=== PATIENT | male | born 1955 | race African-American/Black ===

== ENCOUNTER 2016-11-07 23:57 | Inpatient (IN) | payer OTHER ==
[2016-11-08 00:43] LABS: #Eosinphils 0.3 thou/uL (0.0-0.7); #Monocytes 1.3 thou/uL (0.11-0.59); #Neutrophils 6.1 thou/uL (1.40-6.50); %Basophils 0.3 % (0.0-1.0); %Eosinophils 3.3 % (0.0-10.0); %Lymphocytes 20.2 % (21.0-51.0); %Monocytes 13.8 % (0.0-10.0); Hematocrit 37.2 % (42.0-52.0); Mean Platelet Volume 7.5 fL (7.4-10.4); Red Blood Cell (RBC) Count 3.84 mill/uL (4.70-6.10); White Blood Cell (WBC) Count 9.7 thou/uL (4.8-10.8)
[2016-11-08 01:04] LABS: Anion Gap 14 mmol/L (10-20); BUN (Urea Nitrogen) 13 mg/dL (8.4-25.7); Calc. Creatinine Clearance 0 mL/min (70-130); Calcium 9.6 mg/dL (7.8-10.44); Carbon Dioxide 21 mmol/L (23-31); Chloride 105 mmol/L (98-107); Estimated GFR-MDRD 86
[2016-11-08] MEDS ORDERED: Acetaminophen 325 MG TAB PO PRN ×2 (05:10→09:48)
[2016-11-08] MEDS ORDERED: HYDROcodone/Acetaminophen 5/325 mg Tablet PO PRN ×2 (05:10)
[2016-11-08] MEDS ORDERED: Ondansetron ODT 4 MG TAB SL PRN (05:10)
[2016-11-08] MEDS ORDERED: 1/2 NS w/KCL 20 mEq 1,000 ML IV SCH (05:10)
[2016-11-08] MEDS ORDERED: Ondansetron HCl/PF 4 MG/2 ML Vial IVP PRN ×2 (05:10→09:48)
--- NOTE | 2016-11-08 07:55 | RAD ---
THREE VIEWS OF THE LEFT FOOT: COMPARISON: None. HISTORY: Swelling of left foot with probable gout. FINDINGS: Three views of the left foot show no evidence of acute fracture or dislocation. There is swelling s urrounding the great toe metatarsophalangeal joint. There may be a small erosion along the proximal aspect of the proximal phalanx of the great toe. No calcified masses are seen in the soft tissues. IMPRESSION: Osseous erosions adjacent to the great toe metatarsophalangeal joint may represent erosion from gout . POS: [facility]
--- NOTE | 2016-11-08 08:09 | CON ---
DATE OF CONSULTATION: 11/08/2016 REQUESTING PHYSICIAN: Dr. Floyd Quinonez CONSULTING PHYSICIAN: Dr. Jaspreet Garcia REASON FOR CONSULTATION: Left ankle effusion. HISTORY OF PRESENT ILLNESS: Davy is a 61-year-old male who presented to the [facility] room yesterday evening at the request of his primary care doctor. Apparently Sunday evening of this week he had acute onset swelling of the left foot and ankle. It was uncomfortable. He is u nable bear weight. He saw his primary care physician who told him it was probably gout and started him on allopurinol. He was also given ER precautions for increase in temperature over 99 degrees. Therefore, when his temperature did go up he presented to [facility] and was admitted to the Medicine Team. Our service was consulted for evaluation of left ankle effusion which brought him in. Pain is uncomfortable. It is tolerable when he sits still, but he cannot bear weight on it and he was walking fine earlier this week. No history of trauma precedes t he onset. Sedimentation rate is 90 and C-reactive protein is 12.25. He has no white count to speak of, and he has been afebrile since he has been in the hospital. PAST MEDICAL HISTORY: Hypertension and diabetes type 2, managed with oral medications. New diagnos is of gout. He has had swollen joints before, his right knee has swelled on him some months back. His past medical history is also significant for coronary artery disease and apparently had an open CABG in September of this year. PAST SURGICAL HISTORY: Recent coronary artery bypass graft. MEDICATIONS: Carvedilol, Entresto, atorvastatin, Ecotrin, metformin, Plavix, allopurinol. PHYSICAL EXAMINATION: Visual inspection of the left lower extremity demonstrates him to indeed have an effusion over the left ankle. Pain is provocative with active and/or passive motion. He likes to keep it still. It is minimally warm, but not much erythema is noticed. He has good digital excu rsion. He is neurovascularly intact. There is no evidence of overt trauma. Diffuse circumferentia l swelling and a palpable effusion is noted. IMAGING STUDIES: Three views of the foot demonstrates normal bony landmarks, but these films again are directed at the foot, not ankle, difficult to evaluate for joint effusion on these views, but th ere is some soft tissue swelling appreciated. I do not have a mortise view to evaluate. IMPRESSION: Left ankle acute onset effusions, suspect gout, low suspicion for septic arthritis. PLAN: 1. Serum uric acid with 24-hour urine uric acid. 2. Allow him to have an ADA 1800 calorie diet today, n.p.o. after midnight for recheck tomorrow robyn german. 3. Recommend fluids judiciously. 4. Continue allopurinol and revaluate tomorrow morning. If his ankle still swollen and no improvem ent has been made, consider arthrocentesis at the bedside unless he deteriorates, then consider oper ative management to include arthrotomy at surgery. We will reevaluate tomorrow morning to decide.
--- NOTE | 2016-11-08 09:02 | ULT ---
PRELIMINARY REPORT/[facility]/EMERGENCY AFTER HOURS PROCEDURE: EXAM: US Duplex Left Lower Extremity Veins EXAM DATE/TIME: Exam ordered 11/08/2016 1:34 AM CLINICAL HISTORY: 61 years old, male; Pain and signs and symptoms; Edema, localized; Lower extremity, left; Leg, lower and foot; Prior surgery; Surgery date: 1-6 months; Surgery type: Cabg 09/12/16. TECHNIQUE: Real-time ultrasound scan of the veins of the left lower extremity with color Doppler flow, spectral waveform analysis and compression. COMPARISON: No relevant prior studies available. FINDINGS: Deep veins: Normal. No DVT in the visualized common femoral, femoral, proximal deep femoral or popli teal veins. The veins demonstrate normal color flow, are normally compressible, with normal phasic f low and/or augmentation response. Superficial veins: Normal. No thrombus in the visualized great saphenous vein. Soft tissues: No show any soft tissue edema is present. No popliteal cyst. IMPRESSION: No LEFT lower extremity DVT. Thank you for allowing us to participate in the care of your patient. Dictated and Authenticated by: Elías Vargas MD 11/08/2016 2:17 AM Central Time ([place] \T\ [place]) FINAL REPORT EMERGENT AFTER HOURS LEFT LOWER EXTREMITY VENOUS DUPLEX EXAM: History: Leg pain and edema. FINDINGS: Real-time color doppler evaluation of the left lower extremity was performed from groin to calf. Thi s includes evaluation of the common femoral, superficial femoral, popliteal, saphenous and trifurcat ion veins. This shows a patent deep venous system with normal compressibility and augmentation. Ther e is some soft tissue edema noted. IMPRESSION: 1. No evidence of DVT of the left lower extremity. 2. This report is in agreement with the temporary report issued by [facility]. POS: [facility]
--- NOTE | 2016-11-08 09:02 | RAD ---
THREE VIEWS LEFT ANKLE: Comparison: None. History: Left ankle pain and effusion . FINDINGS: Three views of the left ankle shows no evidence of acute fracture or dislocation. Moderate diffuse s oft tissue swelling is seen. There is ossification along the plantar fascia and along the Achilles t endon. There are ossific fragments adjacent to the medial malleolus which may be sequellae from mahsa te trauma. IMPRESSION: No evidence of acute osseous abnormality. POS: [facility]
[2016-11-08] MEDS ORDERED: HumaLOG 300 UNITS/3 ML VIAL SC PRN (09:15)
[2016-11-08] MEDS ORDERED: Dextrose 5% in Water 1,000 ML IV PRN (09:15)
[2016-11-08] MEDS ORDERED: Dextrose 50% Abboject 50 ML SYRINGE SLOW IVP PRN (09:15)
[2016-11-08] MEDS ORDERED: Ibuprofen 200 MG TAB PO SCH (09:30)
[2016-11-08] MEDS ORDERED: Enoxaparin Sodium 40 MG/0.4 ML SYRINGE SC SCH (09:45)
[2016-11-08] MEDS ORDERED: Aspirin 81 mg Enteric Coated Tablet PO SCH (09:45)
[2016-11-08] MEDS ORDERED: Clopidogrel Bisulfate 75 MG TAB PO SCH (09:45)
[2016-11-08] MEDS ORDERED: Carvedilol 3.125 MG TAB PO SCH (09:45)
[2016-11-08] MEDS ORDERED: Ondansetron ODT 4 MG TAB PO PRN (09:48)
[2016-11-08 09:55] LABS: Anion Gap 13 mmol/L (10-20); BUN (Urea Nitrogen) 12 mg/dL (8.4-25.7); Calc. Creatinine Clearance 114 mL/min (70-130); Calcium 9.2 mg/dL (7.8-10.44); Carbon Dioxide 21 mmol/L (23-31); Chloride 106 mmol/L (98-107); Estimated GFR-MDRD Greater than 90
--- NOTE | 2016-11-08 09:58 | HP ---
CHIEF COMPLAINT: Left ankle pain. HISTORY OF PRESENT ILLNESS: This is a 61-year-old male who came to the emergency r oom yesterday as he was sent by his PCP. Apparently Sunday evening of this week he had acute onset of swelling of the left foot and ankle and he was unable to bear weight on that. His PCP who had to ld him it was probably gout and he started giving him allopurinol. Because he had a fever and the p ain did not resolve, he was sent to the hospital. The patient admits to low grade fever, no chills, no nausea, vomiting, no chest pain, no shortness of breath. PAST MEDICAL HISTORY: Significant for hypertension, diabetes mellitus, coronary artery disease with a CABG in September of this year in 2017. New diagnosis of gout. PAST SURGICAL HISTORY: Significant for recent coronary artery bypass graft. SOCIAL HISTORY: Does not smoke, drink or do any recreational drugs. MEDICATIONS: Coreg, Entresto, atorvastatin, Ecotrin, metformin, Plavix, allopurinol. ALLERGIES: CODEINE. FAMILY HISTORY: Negative for diabetes or hypertension. REVIEW OF SYSTEMS: Significant for left ankle pain and some low grade fever. Otherwise, no chills, no headache, no appetite or weight change. No cough, no chest pain, diarrhea, dysuria or polyuria. No memory or mood changes. No neck pain. PHYSICAL EXAMINATION: VITAL SIGNS: Blood pressure is 120/79. He is afebrile right now, breathing comfortably on room air , pulse is 98. GENERAL: Patient is lying in bed in some distress because of pain. HEENT: Atraumatic and normocephalic. Pupils equal, round, react to light. Extraocular movements i ntact. Mucous membranes moist. NECK: Supple. No JVD. CHEST: Breath sounds, there are no rales or rhonchi. HEART: S1, S2, no murmurs or gallops. ABDOMEN: Soft. EXTREMITIES: No cyanosis, clubbing, edema on the right side. Left side that has effusion over the left ankle, it is a little warm to touch, some erythema noted. Limited range of motion. Neurovascu lar is intact. Sensations are intact. NEUROLOGIC: Alert, awake, and oriented. No cranial nerve deficits. No sensorimotor deficits. LABORATORY DATA: Doppler was negative for DVT. WBC count is 9.7, hemoglobin is 11.8, sodium is 136 , potassium 3.9, creatinine is 1.05, glucose is 125. The patient's x-ray shows left ankle swelling with osseous erosions consistent with a grade II metat arsophalangeal joints which may represent erosions from gout. ASSESSMENT AND PLAN: 1. Left ankle erythema, effusion and pain. Differentials include septic arthritis versus gout, cr ystals disease. We will empirically treat with antibiotics. Blood cultures. We will follow orthop edic plan, tap the joint if needed. We will follow uric acid level. 2. Diabetes. We will treat with insulin sliding scale. 3. Coronary artery disease status post recent coronary artery bypass graft. We will continue all p ertinent home medications and hydrate judiciously. 4. Hypertension, appears to be stable as of now. 5. We do Lovenox for deep venous thrombosis prophylaxis. I will follow the cultures and work with the consultants on further caring for the patient.
[2016-11-08] MEDS: Sodium Chloride 0.9% 1,000 ML IV SCH (11:04)
[2016-11-08] MEDS: Piperacillin/Tazobactam 3.375 GM in Sodium Chloride 0.9% 100 ML IVPB SCH ×2 (11:36→17:29)
[2016-11-08] MEDS: Ibuprofen 200 MG TAB PO SCH ×2 (11:47→20:55)
[2016-11-08 13:21] VITALS: BMI 28.3
[2016-11-08] MEDS: Carvedilol 3.125 MG TAB PO SCH (20:55)
[2016-11-08] MEDS: Atorvastatin Calcium 20 MG TAB PO SCH (20:55)
[2016-11-08] MEDS ORDERED: Non-Formulary Item 1 EACH (Carvedilol [Carvedilol] 3.125 MG) PO SCH (21:00)
[2016-11-09] MEDS: Piperacillin/Tazobactam 3.375 GM in Sodium Chloride 0.9% 100 ML IVPB SCH ×3 (00:30→11:44)
[2016-11-09] MEDS: Ibuprofen 200 MG TAB PO SCH (04:24)
[2016-11-09 06:03] LABS: Band 1 % (5-11); Hematocrit 34.6 % (42.0-52.0); Mean Platelet Volume 7.6 fL (7.4-10.4); Neutrophil 50 % (42-75); Red Blood Cell (RBC) Count 3.51 mill/uL (4.70-6.10); White Blood Cell (WBC) Count 7.8 thou/uL (4.8-10.8)
[2016-11-09] MEDS: Sodium Chloride 0.9% 1,000 ML IV SCH ×2 (07:50→11:44)
[2016-11-09] MEDS: Aspirin 81 mg Enteric Coated Tablet PO SCH (08:33)
[2016-11-09] MEDS: Enoxaparin Sodium 40 MG/0.4 ML SYRINGE SC SCH (08:33)
[2016-11-09] MEDS: Clopidogrel Bisulfate 75 MG TAB PO SCH (08:33)
[2016-11-09] MEDS: Carvedilol 3.125 MG TAB PO SCH ×2 (08:33→20:26)
[2016-11-09] MEDS ORDERED: Ibuprofen 200 MG TAB PO PRN (09:15)
[2016-11-09 10:48] LABS: Uric Acid-Urine 49.5 mg/dL
--- NOTE | 2016-11-09 16:41 | PDOC.PN ---
- Subjective Encounter Start Date: 11/09/16 Encounter Start Time: 14:50 Subjective: left ankle pain and swelling is better this morning - Objective MAR Reviewed: Yes Vital Signs & Weight: Vital Signs (12 hours) Temp Pulse Resp BP Pulse Ox 11/09/16 12:00 98.1 F 11/09/16 08:00 98.5 F 80 18 106/68 99 Weight Weight 208 lb 15.971 oz I&O: 11/08/16 11/09/16 11/10/16 06:59 06:59 06:59 Intake Total 3100 Output Total 2600 Balance 500 Result Diagrams: 11/09/16 05:15 11/08/16 07:25 Additional Labs: Accuchecks 11/09/16 11/09/16 11/08/16 11:17 04:54 20:17 POC Glucose 89 87 115 H 11/08/16 16:36 POC Glucose 72 Phys Exam - Physical Examination HEENT: PERRLA, moist MMs Neck: no JVD, supple Respiratory: no wheezing, no rales Cardiovascular: RRR, no significant murmur Gastrointestinal: soft, non-tender, positive bowel sounds Musculoskeletal: pulses present left foot and ankle edema is receding, mild tenderness in ankle joint Neurological: non-focal, moves all 4 limbs Psychiatric: A&O x 3 Dx/Plan (1) Gout attack Code(s): M10.9 - GOUT, UNSPECIFIED Status: Acute Qualifiers: Gout site: ankle Encounter type: subsequent encounter Laterality: left (2) Dyslipidemia Code(s): E78.5 - HYPERLIPIDEMIA, UNSPECIFIED Status: Chronic (3) HTN (hypertension) Code(s): I10 - ESSENTIAL (PRIMARY) HYPERTENSION Status: Chronic Qualifiers: Hypertension type: essential hypertension Qualified Code(s): I10 - Essential (primary) hypertension (4) Ischemic cardiomyopathy Code(s): I25.5 - ISCHEMIC CARDIOMYOPATHY Status: Chronic (5) Multiple vessel coronary artery disease Code(s): I25.10 - ATHSCL HEART DISEASE OF [place] CORONARY ARTERY W/O ANG PCTRS Status: Chronic Comment: with prior cabg in september - Plan cellulitis of left ankle along with edema and pain is receding -: colchicine bid -: motrin prn -: dc plan in am -: dc iv antibiotics, is on iv steroids for 24hrs * . Review of Systems - Medications/Allergies Allergies/Adverse Reactions: Allergies Allergy/AdvReac Type Severity Reaction Status Date / Time codeine Allergy Nausea Verified 11/08/16 04:33 Medications: Current Medications Acetaminophen (Tylenol) 650 mg PO Q4H PRN PRN Reason: Headache/Fever or Mild Pain Aspirin (Ecotrin) 81 mg PO DAILY [facility] Last Admin: 11/09/16 08:33 Dose: 81 mg Atorvastatin Calcium (Lipitor) 20 mg PO HS [facility] Last Admin: 11/08/16 20:55 Dose: 20 mg Carvedilol (Coreg) 3.125 mg PO BID [facility] Last Admin: 11/09/16 08:33 Dose: 3.125 mg Clopidogrel Bisulfate (Plavix) 75 mg PO DAILY [facility] Last Admin: 11/09/16 08:33 Dose: 75 mg Colchicine (Colcrys) 0.3 mg PO BID [facility] Dextrose/Water (Dextrose 50%) 25 gm SLOW IVP PRN PRN PRN Reason: Hypoglycemia Enoxaparin Sodium (Lovenox) 40 mg SC 0900 [facility] Last Admin: 11/09/16 08:33 Dose: 40 mg Glucagon (Glucagon) 1 mg IM PRN PRN PRN Reason: Hypoglycemia Dextrose/Water (D5w) 1,000 mls @ 0 mls/hr IV .Q0M PRN; As Directed PRN Reason: Hypoglycemia Sodium Chloride (Normal Saline 0.9%) 1,000 mls @ 50 mls/hr IV .Q20H [facility] Stop: 11/10/16 09:31 Last Admin: 11/09/16 11:44 Dose: 1,000 mls Ibuprofen (Motrin) 400 mg PO 0400,1200,2000 PRN PRN Reason: Moderate Pain (4-6) Insulin Human Lispro (Humalog) 0 units SC .MODERATE SLIDING SC PRN PRN Reason: Moderate Correctional Scale Methylprednisolone Sodium Succinate (Solu-Medrol) 20 mg IVP Q8HR [facility] Last Admin: 11/09/16 12:56 Dose: 20 mg Morphine Sulfate (Morphine Sulfate) 2 mg SLOW IVP Q4H PRN PRN Reason: Severe Pain (7-8) Morphine Sulfate (Morphine Sulfate) 4 mg SLOW IVP Q4H PRN PRN Reason: Severe Pain (9-10) Ondansetron HCl (Zofran) 4 mg IVP Q6H PRN PRN Reason: Nausea/Vomiting Ondansetron HCl (Zofran Odt) 4 mg PO Q6H PRN PRN Reason: Nausea/Vomiting Pantoprazole Sodium (Protonix) 40 mg PO DAILY [facility] Last Admin: 11/09/16 08:33 Dose: 40 mg Sodium Chloride (Flush - Normal Saline) 10 ml IVF Q12HR [facility] Last Admin: 11/09/16 08:34 Dose: Not Given Sodium Chloride (Flush - Normal Saline) 10 ml IVF PRN PRN PRN Reason: Saline Flush
[2016-11-09] MEDS: Colchicine 0.6 MG TAB PO SCH (20:25)
[2016-11-09] MEDS: Atorvastatin Calcium 20 MG TAB PO SCH (20:26)
[2016-11-10] MEDS: Sodium Chloride 0.9% 1,000 ML IV SCH (05:19)
[2016-11-10] MEDS: Clopidogrel Bisulfate 75 MG TAB PO SCH (09:37)
[2016-11-10] MEDS: Colchicine 0.6 MG TAB PO SCH (09:37)
[2016-11-10] MEDS: Carvedilol 3.125 MG TAB PO SCH (09:37)
[2016-11-10] MEDS: Aspirin 81 mg Enteric Coated Tablet PO SCH (09:37)
[2016-11-10] MEDS: Enoxaparin Sodium 40 MG/0.4 ML SYRINGE SC SCH (09:38)
--- NOTE | 2016-11-10 16:06 | PDOC.PN ---
- Subjective Encounter Start Date: 11/10/16 Encounter Start Time: 07:50 Subjective: feels better with less pain in his ankle - Objective MAR Reviewed: Yes Vital Signs & Weight: Vital Signs (12 hours) Temp Pulse Resp BP Pulse Ox 11/10/16 14:50 97.4 F L 87 18 111/68 98 11/10/16 08:00 98.3 F 79 16 97 11/10/16 07:26 98.3 F 79 16 104/64 97 Weight Weight 208 lb 15.971 oz I&O: 11/09/16 11/10/16 11/11/16 06:59 06:59 06:59 Intake Total 3100 3200 480 Output Total 2600 Balance 500 3200 480 Result Diagrams: 11/09/16 05:15 11/08/16 07:25 Additional Labs: Accuchecks 11/10/16 11/10/16 11/09/16 11:40 05:28 20:45 POC Glucose 179 H 151 H 137 H 11/09/16 16:21 POC Glucose 123 H Phys Exam - Physical Examination HEENT: PERRLA, moist MMs Neck: no JVD, supple Respiratory: no wheezing, no rales Cardiovascular: RRR, no significant murmur Gastrointestinal: soft, non-tender, positive bowel sounds Musculoskeletal: pulses present left ankle edema and tenderness is better Neurological: non-focal, moves all 4 limbs Psychiatric: A&O x 3 Dx/Plan (1) Gout attack Code(s): M10.9 - GOUT, UNSPECIFIED Status: Acute Qualifiers: Gout site: ankle Encounter type: subsequent encounter Laterality: left (2) Dyslipidemia Code(s): E78.5 - HYPERLIPIDEMIA, UNSPECIFIED Status: Chronic (3) HTN (hypertension) Code(s): I10 - ESSENTIAL (PRIMARY) HYPERTENSION Status: Chronic Qualifiers: Hypertension type: essential hypertension Qualified Code(s): I10 - Essential (primary) hypertension (4) Ischemic cardiomyopathy Code(s): I25.5 - ISCHEMIC CARDIOMYOPATHY Status: Chronic (5) Multiple vessel coronary artery disease Code(s): I25.10 - ATHSCL HEART DISEASE OF [place] CORONARY ARTERY W/O ANG PCTRS Status: Chronic Comment: with prior cabg in september - Plan dc pt home -: oral colchicine -: no steroids on dc * .
[2016-11-10 16:39] VITALS: BP 120/79; TEMP 98.2
--- NOTE | 2016-11-10 19:54 | DIS ---
DATE OF ADMISSION: 11/08/2016 DATE OF DISCHARGE: 11/10/2016 DISCHARGE DISPOSITION: To home. PRIMARY DISCHARGE DIAGNOSIS: Acute gout attack of left ankle with cellulitis of left foot, resolvin g. SECONDARY DISCHARGE DIAGNOSES: Coronary artery disease with prior coronary artery bypass graft, isc hemic cardiomyopathy, hypertension, dyslipidemia. PROCEDURES DONE DURING HOSPITALIZATION: The patient has had left foot x-ray done which showed osseo us erosions adjacent to the great toe, metatarsophalangeal joint may represent erosion from gout. U ltrasound of venous Doppler done on left lower extremity showed no evidence of DVT. Ankle x-ray don e on the left showed no evidence of acute osseous abnormality, H\T\H 10 and 34 with a platelet count of 242. Sedimentation rate was 90. CRP 12.2. A 24-hour uric acid levels were 1040 mg. Blood cul tures x2 no growth. DISCHARGE MEDICATIONS: Colchicine 0.3 mg p.o. twice daily for 1 week, ferrous sulfate 325 mg p.o. d aily, Entresto 24/26 mg 1 tablet daily, metformin 500 mg p.o. twice daily, aspirin 81 mg p.o. daily, Plavix 75 mg p.o. daily, Coreg 6.25 mg p.o. twice daily, atorvastatin 20 mg p.o. at bedtime. ALLERGIES: Allergic to CODEINE. INPATIENT CONSULTS: Dr. Jaspreet Garcia for Orthopedic Surgery. DISCHARGE PLAN: Patient to follow up with primary care physician in 1 week. BRIEF COURSE DURING HOSPITALIZATION: The patient initially got admitted on 11/08/2016 with severe l eft ankle pain. He had erythema, tenderness, and edema of left foot and ankle area. He was unable to bear weight. He has had orthopedic surgery consultation to rule out septic arthritis. As the pa félix's pain, swelling, and erythema was rapidly resolving with him being placed on Motrin and colch icine, no further intervention was done. Likely this was gout attack. He has responded well to abo ve measures. He was also briefly on steroids, which have been discontinued. He needs to continue c olchicine for a period of 1 week. Patient also needs to follow up with his primary care physician i n 1 week. Please see a face to face documentation on [facility] for the day of discharge.
== END 2016-11-10 17:28 | disposition home or self-care (01) | DRG 554 ==
LOC: ERS 23:57 → T4-B 11-08 02:45
PROVIDERS: ADMIT Internal Medicine; ATTEND Internal Medicine
DX: M10.9 Gout, unspecified (principal); L03.116 Cellulitis of left lower limb; I25.10 Atherosclerotic heart disease of native coronary artery without angina pectoris; Z95.1 Presence of aortocoronary bypass graft; I25.5 Ischemic cardiomyopathy; E11.9 Type 2 diabetes mellitus without complications; E78.5 Hyperlipidemia, unspecified
CPT/HCPCS: 36415; 36416; 80048; 84550; 84560; 85025; 85652; 86140; 87040; 96374; A4216; J1650; J2270; J2543; J2920; J7050

== ENCOUNTER 2017-08-17 20:10 | Emergency (ER) | payer BC ==
--- NOTE | 2017-08-17 20:58 | RAD ---
TWO VIEWS OF THE CHEST: 08/17/17 COMPARISON: 05/25/16 HISTORY: CHF. Difficulty swallowing. Short windedness. FINDINGS: Two views of the chest shows normal sized cardiomediastinal silhouette. The patient is status post st ernotomy. There is no evidence of consolidation, mass or pleural effusion. IMPRESSION: No evidence of acute cardiopulmonary disease. POS: [facility]
[2017-08-17 21:04] LABS: ALT (SGPT) 16 U/L (8-55); AST (SGOT) 17 U/L (5-34); Albumin 4.3 g/dL (3.4-4.8); Alkaline Phosphatase 85 U/L (40-150); Anion Gap 12 mmol/L (10-20); BUN (Urea Nitrogen) 18 mg/dL (8.4-25.7); Bilirubin, Total 0.4 mg/dL (0.2-1.2); Calc. Creatinine Clearance 0 mL/min (70-130); Calcium 9.7 mg/dL (7.8-10.44); Carbon Dioxide 24 mmol/L (23-31); Chloride 104 mmol/L (98-107); Estimated GFR-MDRD 59; Glucose 139 mg/dL (80-115); Potassium 4.5 mmol/L (3.5-5.1); Protein, Total 8.3 g/dL (5.8-8.1); Sodium 135 mmol/L (136-145)
[2017-08-17 21:08] LABS: CKMB 4.1 ng/mL (0-6.6); Troponin I Less than 0.010 ng/mL (< 0.028)
[2017-08-17 21:14] LABS: Band 1 % (5-11); Eosinophils 5 % (0-10); Hemoglobin 12.8 g/dL (14.0-18.0); Lymphocytes 53 % (21-51); MDiff Complete? YES; Mean Corpuscular HGB CONC 32.6 g/dL (32.0-36.0); Mean Corpuscular Hemoglobin 30.3 pg (27.0-31.0); Mean Platelet Volume 7.9 fL (7.4-10.4); Monocytes 7 % (0-10); Neutrophil 34 % (42-75); PLT Morphology Comment Appears Adequate; Platelet Count 182 thou/uL (130-400); RBC Distribution Width 13.7 % (11.5-14.5); RBC Morphology Normal; Red Blood Cell (RBC) Count 4.23 mill/uL (4.70-6.10); White Blood Cell (WBC) Count 5.8 thou/uL (4.8-10.8)
[2017-08-17 21:27] LABS: Magnesium 2.2 mg/dL (1.6-2.6)
== END 2017-08-17 22:07 | disposition home or self-care (01) ==
LOC: ERS 20:10
DX: R13.10 Dysphagia, unspecified (principal); R06.02 Shortness of breath; M10.9 Gout, unspecified; E11.9 Type 2 diabetes mellitus without complications; E78.5 Hyperlipidemia, unspecified; I10 Essential (primary) hypertension; J45.909 Unspecified asthma, uncomplicated; Z79.899 Other long term (current) drug therapy; Z79.84 Long term (current) use of oral hypoglycemic drugs
CPT/HCPCS: 36415; 71046; 80053; 82553; 83690; 83735; 83880; 84443; 84484; 85025; 93005

== ENCOUNTER 2018-06-17 15:25 | Observation (INO) | payer BC, MEDICARE ==
[2018-06-17 15:54] LABS: #Basophils 0.1 thou/uL (0.0-0.2); #Eosinphils 0.4 thou/uL (0.0-0.7); #Lymphocytes 2.3 thou/uL (1.20-3.40); #Monocytes 0.8 thou/uL (0.11-0.59); #Neutrophils 3.8 thou/uL (1.40-6.50); %Basophils 0.8 % (0.0-1.0); %Lymphocytes 31.6 % (21.0-51.0); %Monocytes 10.1 % (0.0-10.0); %Neutrophils 51.5 % (42.0-75.0); Hemoglobin 12.1 g/dL (14.0-18.0); Mean Corpuscular HGB CONC 32.5 g/dL (32.0-36.0); Mean Corpuscular Hemoglobin 30.6 pg (27.0-31.0); Mean Platelet Volume 7.7 fL (7.4-10.4); Platelet Count 281 thou/uL (130-400); RBC Distribution Width 13.4 % (11.5-14.5); Red Blood Cell (RBC) Count 3.95 mill/uL (4.70-6.10); White Blood Cell (WBC) Count 7.4 thou/uL (4.8-10.8)
[2018-06-17 16:16] LABS: ALT (SGPT) 15 U/L (8-55); AST (SGOT) 18 U/L (5-34); Albumin 4.1 g/dL (3.4-4.8); Alkaline Phosphatase 79 U/L (40-150); Anion Gap 14 mmol/L (10-20); BUN (Urea Nitrogen) 18 mg/dL (8.4-25.7); Bilirubin, Total 0.3 mg/dL (0.2-1.2); CK (CPK) 207 U/L (30-200); Calc. Creatinine Clearance 0 mL/min (70-130); Calcium 9.8 mg/dL (7.8-10.44); Carbon Dioxide 23 mmol/L (23-31); Chloride 104 mmol/L (98-107); Estimated GFR-MDRD 61; Globulin 3.8 g/dL (2.4-3.5); Glucose 126 mg/dL (80-115); Lipase 21 U/L (8-78); Potassium 4.2 mmol/L (3.5-5.1); Protein, Total 7.9 g/dL (5.8-8.1); Sodium 137 mmol/L (136-145)
[2018-06-17] MEDS ORDERED: Aspirin Chewable 81 MG TAB ONE (16:53)
[2018-06-17] MEDS ORDERED: Nitroglycerin 0.4 MG TAB 1 EACH ONE (16:53)
--- NOTE | 2018-06-17 16:59 | RAD ---
CHEST ONE VIEW: History: Chest pressure since this morning. Difficulty breathing. Sweating. Comparison: 08-17-17 FINDINGS: Post underlying sternotomy. Left ICD. No confluent pneumonia, overt edema, or pleural effusion or oth er acute process. IMPRESSION: No acute intrathoracic disease. Atherosclerosis of the aorta. Post underlying sternotomy. Left ICD. POS: [facility]
[2018-06-17 20:45] LABS: Troponin I 0.014 ng/mL (< 0.028)
[2018-06-17 21:59] VITALS: BMI 31.1
[2018-06-17 22:44] LABS: Troponin I Less than 0.010 ng/mL (< 0.028)
[2018-06-18] MEDS ORDERED: Regadenoson 0.4 MG/5 ML SYRINGE ONE (11:50)
--- NOTE | 2018-06-18 17:15 | NM ---
NM Cardiac Stress W EF WF History: [Chest pain.] Comparison: None. Findings: Nuclear medicine cardiac stress and rest was performed after the intravenous administration of 30 and 9 mCi technetium 99m sestamibi, respectively. There is a scar of the septum. No reversible ischemia. Dyskinesia of the septum. Low global ejection fraction of 42%. Impression: Evidence of scar of the septum from prior infarction with dyskinesia and low ejection fra ction of 42%.
[2018-06-18 17:48] VITALS: BP 130/92; TEMP 97.9
--- NOTE | 2018-06-19 01:16 | HP ---
CHIEF COMPLAINT: Chest pain. HISTORY OF PRESENT ILLNESS: Mr. Evangelista is a 62-year-old male with past medical history of coronary artery disease status post CABG, ischemic cardiomyopathy and diabetes, came because of chest pressure which is intermittent since 2 days. The patient has neck pain that started on Sunday, lasted for a few minutes and went away. It is pressure-like, retrosternal, associated with some diaphoresis and shortness of breath. No nausea or vomiting. No dizziness. The patient decided to come over to the hospital because of these symptoms. By the time the patient came to the ER, he did not have much pain. In the ER, the patient was evaluated and in view of the risk factors, the patient has been admitted to rule out multiple infarcts. PAST MEDICAL HISTORY: 1. Coronary artery disease, status post coronary artery bypass graft. 2. Ischemic cardiomyopathy with decreased LV function with ejection fraction of 20%. 3. Hypertension. 4. Diabetes mellitus. 5. Hyperlipidemia. 6. History of anemia. PAST SURGICAL HISTORY: 1. Status post coronary artery bypass graft. 2. Status post defibrillator placement. 3. Status post biceps tendon repair. CURRENT MEDICATIONS: The patient is on: 1. Spironolactone, dosage not clear. 2. Entresto 1 tablet b.i.d. 3. Coreg 12.5 b.i.d. 4. Plavix 75 mg daily. 5. Furosemide 40 mg daily. 6. Atorvastatin 40 mg daily. 7. iron supplement daily. 8. Aspirin 81 mg daily. 9. Metformin 500 b.i.d. ALLERGIES: CODEINE. FAMILY HISTORY: Nothing contributory. SOCIAL HISTORY: The patient lives with family. No history of smoking. No history of alcohol intake. REVIEW OF SYSTEMS: CARDIOVASCULAR: No chest pain. No shortness of breath. RESPIRATORY: No fever or cough. GASTROINTESTINAL: No nausea or vomiting. CENTRAL NERVOUS SYSTEM: No headache. No dizziness. PHYSICAL EXAMINATION: GENERAL: The patient is alert, awake, and oriented x3. VITAL SIGNS: Temperature 98, pulse 65, respirations 20, and blood pressure 115/ 17. HEENT: Head is normocephalic and atraumatic. Pupils are equal and reactive to light. Nasopharynx is pale and dry. Hard and soft palate. No lesions. SKIN: Turgor decreased. NECK: Supple. No JVD. LUNGS: Bilateral air entry present. No rales or rhonchi. HEART: S1 and S2. Regular. ABDOMEN: Soft. No distention. No tenderness. Normal bowel sounds present. CENTRAL NERVOUS SYSTEM: No focal deficit. EXTREMITIES: No edema. LABORATORY DATA: CBC shows WBC 7.4, hemoglobin 12 and platelets 281. Metabolic panel; sodium 137, potassium 4.2, chloride 104, CO2 of 23, BUN 18, creatinine 1.4, glucose 126. Troponin I 0.010. EKG shows normal sinus rhythm, no acute ST-T changes seen. Chest x-ray negative. ASSESSMENT: 1. Chest pain, rule out myocardial infarction. 2. Coronary artery disease, status post coronary artery bypass grafting. 3. Ischemic cardiomyopathy. 4. Hypertension. 5. Diabetes mellitus. PLAN: 1. Vital signs q.4. 2. Activity as tolerated. 3. Allergies, NKDA. 4. Allergies to codeine. 5. Hep-Lock. 6. Diet, ADA, and cardiac. 7. Troponin q.6 hours x2. 8. We will obtain stress test. 9. We will continue home medications. Job ID: [id number] [facility]
--- NOTE | 2018-06-19 11:38 | DIS ---
DATE OF ADMISSION: 06/17/2018 DATE OF DISCHARGE: 06/18/2018 ADMITTING DIAGNOSES: 1. Chest pain, rule out myocardial infarction. 2. Coronary artery disease, status post coronary artery bypass grafting. 3. Ischemic cardiomyopathy. 4. Hypertension. 5. Diabetes mellitus. FINAL DIAGNOSES: 1. Chest pain, no evidence of acute myocardial infarction and negative Cardiolite stress test. 2. History of coronary artery disease, status post coronary artery bypass grafting. 3. Ischemic cardiomyopathy. 4. Hypertension. 5. Diabetes mellitus. HISTORY OF PRESENT ILLNESS: This is a 62-year-old old male who came to the hospital because of chest pain. In view of his risk factors, the patient was admitted to rule out myocardial infarction. Serial cardiac enzymes were done and they were normal. . A Cardiolite stress test was done, which was reported as negative for ischemia. In view of improved symptoms, the patient is being discharged. At the time of discharge, he was stable and vitals signs are stable. Lungs clear. Heart sounds are regular. Abdomen is soft. No tenderness. Bowel sounds present. DISCHARGE MEDICATIONS: Include: 1. Aspirin 81 mg daily. 2. Plavix 75 mg daily. 3. Metformin 500 mg b.i.d. 4. Lipitor 40 mg daily. 5. Coreg 12.5 b.i.d. 6. Ferrous sulfate 325 mg daily. 7. Lasix 40 mg daily. 8. Entresto 1 b.i.d. 9. Spironolactone 25 mg tablet as needed. FOLLOWUP: The patient will come for followup in 2 weeks. Job ID: [id number] [facility]
--- NOTE | 2018-06-22 14:23 | EKG ---
Test Reason : Blood Pressure : / mmHG Vent. Rate : 076 BPM Atrial Rate : 076 BPM P-R Int : 180 ms QRS Dur : 174 ms QT Int : 436 ms P-R-T Axes : 050 004 247 degrees QTc Int : 490 ms Normal sinus rhythm Non-specific intra-ventricular conduction block Abnormal ECG Confirmed by MARIA DE JESUS KIMBROUGH ([id number]), image editor ESCOBAR RICHMOND ([id number]) on 06/22/2018 2:22:55 PM Referred By: Confirmed By:MARIA DE JESUS KIMBROUGH
== END 2018-06-18 18:48 | disposition home or self-care (01) ==
LOC: ERS 15:25 → 2SW 21:21
PROVIDERS: ADMIT Internal Medicine; ATTEND Internal Medicine
DX: R07.89 Other chest pain (principal); I25.10 Atherosclerotic heart disease of native coronary artery without angina pectoris; I25.5 Ischemic cardiomyopathy; I10 Essential (primary) hypertension; E11.9 Type 2 diabetes mellitus without complications; E78.5 Hyperlipidemia, unspecified; Z79.02 Long term (current) use of antithrombotics/antiplatelets; Z79.82 Long term (current) use of aspirin; Z79.84 Long term (current) use of oral hypoglycemic drugs; Z79.899 Other long term (current) drug therapy; Z88.5 Allergy status to narcotic agent; Z95.1 Presence of aortocoronary bypass graft; Z95.810 Presence of automatic (implantable) cardiac defibrillator
CPT/HCPCS: 71045; 78452; 80053; 82550; 83690; 84484 ×2; 85025; 93005; 93017; 99285; A9500; G0378 ×2; 36415; J2785

== ENCOUNTER 2018-09-05 17:56 | Observation (INO) | payer MEDICARE ==
--- NOTE | 2018-09-05 18:23 | RAD ---
EXAM: CHEST ONE VIEW PORTABLE: 09/05/18 HISTORY: Chest pressure, chest pain. COMPARISON: 06/17/18. FINDINGS: Postop midline sternotomy. Left ICD. No confluent pneumonia, overt edema, or pleural effusion. IMPRESSION: No significant acute process. Stable from prior study. POS: RRE
[2018-09-05 18:26] LABS: #Basophils 0.1 thou/uL (0.0-0.2); #Eosinphils 0.5 thou/uL (0.0-0.7); #Lymphocytes 2.6 thou/uL (1.20-3.40); #Monocytes 0.8 thou/uL (0.11-0.59); #Neutrophils 3.2 thou/uL (1.40-6.50); %Basophils 1.3 % (0.0-1.0); %Eosinophils 6.7 % (0.0-10.0); %Lymphocytes 36.3 % (21.0-51.0); %Monocytes 11.5 % (0.0-10.0); %Neutrophils 44.2 % (42.0-75.0); Hemoglobin 12.5 g/dL (14.0-18.0); Mean Corpuscular HGB CONC 33.2 g/dL (32.0-36.0); Mean Corpuscular Hemoglobin 30.9 pg (27.0-31.0); Mean Platelet Volume 7.4 fL (7.4-10.4); Platelet Count 278 thou/uL (130-400); RBC Distribution Width 13.1 % (11.5-14.5); Red Blood Cell (RBC) Count 4.04 mill/uL (4.70-6.10); White Blood Cell (WBC) Count 7.2 thou/uL (4.8-10.8)
[2018-09-05] MEDS ORDERED: Aspirin Chewable 81 MG TAB ONE (18:39)
[2018-09-05 18:48] LABS: ALT (SGPT) 13 U/L (8-55); AST (SGOT) 18 U/L (5-34); Albumin 4.5 g/dL (3.4-4.8); Alkaline Phosphatase 94 U/L (40-150); Anion Gap 14 mmol/L (10-20); BUN (Urea Nitrogen) 23 mg/dL (8.4-25.7); Bilirubin, Total 0.2 mg/dL (0.2-1.2); CK (CPK) 263 U/L (30-200); Calc. Creatinine Clearance 0 mL/min (70-130); Calcium 10.5 mg/dL (7.8-10.44); Carbon Dioxide 24 mmol/L (23-31); Chloride 103 mmol/L (98-107); Estimated GFR-MDRD 57; Globulin 4.1 g/dL (2.4-3.5); Glucose 143 mg/dL (80-115); Lipase 28 U/L (8-78); Potassium 4.1 mmol/L (3.5-5.1); Protein, Total 8.6 g/dL (5.8-8.1); Sodium 137 mmol/L (136-145)
[2018-09-05] MEDS ORDERED: Acetaminophen 325 MG TAB PO PRN (21:17)
[2018-09-05] MEDS ORDERED: Senokot S 8.6-50 MG TAB PO PRN (21:17)
[2018-09-05] MEDS ORDERED: Ondansetron ODT 4 MG TAB PO PRN (21:17)
[2018-09-05] MEDS ORDERED: Ondansetron PF 4 MG/2 ML Vial IVP PRN (21:17)
[2018-09-05] MEDS ORDERED: Acetaminophen 650 MG Suppository PR PRN (21:17)
[2018-09-05 21:46] LABS: Troponin I Less than 0.010 ng/mL (< 0.028)
[2018-09-05] MEDS ORDERED: HumaLOG 300 UNITS/3 ML VIAL SC PRN ×2 (22:00)
[2018-09-05] MEDS ORDERED: Dextrose 50% Abboject 50 ML SYRINGE SLOW IVP PRN (22:00)
[2018-09-05] MEDS ORDERED: Dextrose 5% in Water 1,000 ML IV PRN (22:00)
[2018-09-05 23:06] VITALS: BMI 31.3
[2018-09-05] MEDS ORDERED: Sodium Chloride 0.9% 1,000 ML IV SCH (23:27)
--- NOTE | 2018-09-05 23:53 | HP ---
CHIEF COMPLAINT: Intermittent and persistent chest pain, burning sensation to his face. HISTORY OF PRESENT ILLNESS: Mr. Evangelista is a 63-year-old man with a known history of coronary artery disease, status post CABG, and ischemic cardiomyopathy as well as hypertension and hyperlipidemia. The patient presents due to concerns over experiencing burning sensation to his face with tingling that lasted a few seconds and subsided. It recurred 30 minutes later and subsided again. The patient reports having intermittent chest pressure at baseline, for which he was evaluated in early June 2018. He underwent a Cardiolite stress test at that time showing evidence of a scar at the septum from prior infarction with dyskinesia and low ejection fraction of 42%. The patient states the chest pressure is usually in the area of his AICD/Defib. He states it comes and goes sporadically throughout the day and has remained persistent since June with no significant worsening. It does not seem to be associated with activity only as it occurs while at rest as well. The patient reports having issues with shortness of breath, which also is chronic and unchanged from his baseline. He denies any recent cough or hemoptysis. No fevers, chills , or sweats. He also denies experiencing any slurred speech. No facial drooping or weakness. No difficulty swallowing or tongue swelling. No rash on his face or elsewhere on his body. Denies any extremity numbness or weakness. The patient states it was a strange feeling that worried him. He is a poor historian and unable to state clearly whether or not he had an episode of shortness of breath that precipitated the burning and tingling sensation, perhaps from hyperventilating. The patient states he is unsure of the timing of that, but states the shortness of breath did not seem far from what he normally experiences. He does not recall hyperventilating. His last echo was done, September 2016, at which time, he had an EF of 25% to 30%. with grade 1/3 diastolic dysfunction, severe global hypokinesis, mitral annular calcification, mild mitral regurgitation, mild tricuspid regurgitation, mild pulmonic regurgitation, and delayed septal activation consistent with bundle branch block morphology. REVIEW OF SYSTEMS: All other review of systems are negative. ALLERGIES: CODEINE. CURRENT MEDICATIONS: 1. Atorvastatin. 2. Carvedilol. 3. Ferrous sulfate. 4. Furosemide. 5. Metformin. 6. Entresto. 7. Spironolactone. 8. Aspirin. 9. Clopidogrel. PAST MEDICAL HISTORY: 1. Hypertension. 2. Type 2 diabetes mellitus. 3. Gout. 4. Coronary artery disease. 5. Cardiomyopathy. 6. Hyperlipidemia. PAST SURGICAL HISTORY: 1. CABG. 2. AICD/Defib placement. 3. Biceps tendon repair. SOCIAL HISTORY: The patient denies any tobacco use, alcohol consumption, or illicit drug use. PHYSICAL EXAMINATION: GENERAL: The patient appears well developed, well nourished, is in no acute distress. VITAL SIGNS: Temperature 97.7, blood pressure 119/73, pulse 68, respirations 21 , O2 saturation 96% on room air. HEENT: Normocephalic and atraumatic. Pupils are equal, round, reactive to light. Sclerae icterus. Oropharynx is clear. NECK: Supple. No lymphadenopathy. LUNGS: Clear to auscultation bilaterally without wheezes, rales, or rhonchi. CARDIAC: Regular rate and rhythm. ABDOMEN: Soft, nontender, nondistended. Normoactive bowel sounds present. EXTREMITIES: No lower leg edema. NEUROLOGIC: Alert and oriented x3. SKIN: Without rash or jaundice. LABORATORY DATA: White blood count 7.2, hemoglobin 12.5, hematocrit 37.5, platelets 278. Sodium 137, potassium 4.1, BUN 23, creatinine 1.50, GFR 57, glucose 143, calcium 10.5, total bilirubin 0.2, AST 18, ALT 13, alkaline phosphatase 94. CK 263, troponin negative x2. BNP 67.2, albumin 4.5, lipase 28. IMAGING DATA: Chest x-ray, 09/05/2018. No significant acute process. Left ICD present. IMPRESSION AND PLAN: Mr. Evangelista is a 63-year-old man, who is being referred for management of the followin. Acute coronary syndrome rule out. His last echo was in 2017 and would be worth repeating. Consultation has been placed with Cardiology given his extensive cardiac history and persisting chest pain. Continue to trend troponins. We will add a magnesium. We will obtain AICD interrogation. We will add magnesium to the laboratory studies. We will also add a D-dimer. 2. Acute kidney injury. The patient with elevated creatinine from baseline. We will give very gentle hydration given the history of severe cardiomyopathy. We will give only 1 L at 50 mL an hour of normal saline. 3. Diabetes mellitus. Monitor glucose and initiate insulin sliding scale. 4. Hypertension. Resume home medications once verified. Continue to monitor blood pressure. 5. Gastrointestinal prophylaxis. 6. Deep venous thrombosis prophylaxis with mechanical SCDs. 7. Code status, full. His surrogate decision maker is his , Jf Evangelista. The patient's case was discussed with attending, who agrees with the plan of care as described above. Job ID: [id number] MTDD
[2018-09-06 01:09] LABS: Troponin I Less than 0.010 ng/mL (< 0.028)
[2018-09-06 05:43] LABS: #Basophils 0.1 thou/uL (0.0-0.2); #Eosinphils 0.4 thou/uL (0.0-0.7); #Lymphocytes 2.6 thou/uL (1.20-3.40); #Monocytes 0.7 thou/uL (0.11-0.59); %Eosinophils 7.2 % (0.0-10.0); %Lymphocytes 45.2 % (21.0-51.0); %Monocytes 11.7 % (0.0-10.0); Hemoglobin 11.5 g/dL (14.0-18.0); Mean Corpuscular Hemoglobin 30.1 pg (27.0-31.0); Mean Corpuscular Volume 93.9 fL (78.0-98.0); Mean Platelet Volume 7.5 fL (7.4-10.4); Platelet Count 232 thou/uL (130-400); RBC Distribution Width 13.1 % (11.5-14.5); Red Blood Cell (RBC) Count 3.82 mill/uL (4.70-6.10); White Blood Cell (WBC) Count 5.8 thou/uL (4.8-10.8)
[2018-09-06 06:06] LABS: Anion Gap 12 mmol/L (10-20); BUN (Urea Nitrogen) 21 mg/dL (8.4-25.7); Calc. Creatinine Clearance 89 mL/min (70-130); Calcium 9.6 mg/dL (7.8-10.44); Carbon Dioxide 24 mmol/L (23-31); Chloride 106 mmol/L (98-107); Estimated GFR-MDRD 72; Glucose 109 mg/dL (80-115); Potassium 4.4 mmol/L (3.5-5.1); Sodium 138 mmol/L (136-145)
[2018-09-06 08:22] VITALS: BP 125/80; TEMP 97.4
[2018-09-06] MEDS ORDERED: Famotidine/PF 20 mg/2ml Vial SLOW IVP SCH (09:00)
--- NOTE | 2018-09-06 14:59 | DIS ---
DATE OF ADMISSION: 09/05/2018 DATE OF DISCHARGE: 09/06/2018 PRIMARY CARE PHYSICIAN: YANET Alvarez. DISCHARGE DISPOSITION: Home. PRIMARY DISCHARGE DIAGNOSES: Chest pain, ruled out acute coronary syndrome; mild acute kidney injury, improved. SECONDARY DISCHARGE DIAGNOSES: Chronic systolic heart failure stage C, dyslipidemia, ischemic cardiomyopathy, hypertension, coronary artery disease, obesity. RADIOLOGICAL INVESTIGATION: Chest x-ray normal. SIGNIFICANT LABORATORY DATA: Hemoglobin 11.5. D-dimer 0.59, creatinine 1.22. Cardiac enzyme negative. DISCHARGE MEDICATIONS: 1. Lipitor 40 mg p.o. at bedtime. 2. Coreg 12.5 mg b.i.d. ferrous sulfate 325 mg p.o. daily. 3. Lasix 40 mg daily. 4. Metformin 500 mg b.i.d. and. 5. Entresto one tablet b.i.d. 6. Aldactone 12.5 mg twice daily. 7. Aspirin 81 mg daily. 8. Plavix 75 mg daily. CONTRAINDICATION: None. CODE STATUS: Full code. INPATIENT HEALTH SAFETY INSTRUCTOR: Dr. Hobbs was consulted while in hospital. TEST RESULT PENDING ON DISCHARGE: None. ALLERGIES: CODEINE. DISCHARGE PLAN: Posthospital, the patient will follow up with primary care physician and mine shifter as instructed. HOSPITAL COURSE: A 63-year-old male with above-mentioned medical problem, who was admitted by Ava Tamayo. Please see her H and P for further details. The patient was admitted for chest pain. His chest pain description was nonanginal. He had routine blood test done in the emergency room, which showed mild acute kidney injury. He was given IV fluid, and with that, kidney numbers improved to normal. He had negative troponins. He had negative telemetry monitoring, and we interrogated his pacemaker/defibrillator, which was also unremarkable. This patient was evaluated by Cardiology and they cleared him for discharge. This patient already had recent stress test done and all investigation done and that is why we did not pursue anymore investigation during this admission. I have seen and examined the patient bedside today. All review of systems reviewed with him and negative. His physical examination is completely normal. Job ID: [id number]
--- NOTE | 2018-09-06 15:42 | CON ---
DATE OF CONSULTATION: 09/06/2018 INDICATION FOR CONSULTATION: A 63-year-old patient with a history of known coronary artery disease, underwent bypass surgery in 2017. He has history of ischemic cardiomyopathy, his ejection fraction most recently by nuclear study showed ejection fraction in the 42% range I believe. Otherwise, he has had no significant chest pain since his bypass surgery. He has had an AICD implanted and does have chest pressure around the AICD site. He was admitted to the hospital after he complained of some facial tingling around 3 o'clock in the afternoon. It lasted about 5 to 10 minutes. This is the second episode that he has had. He has had an evaluation and there has been no significant abnormalities noted that would account for this. He has had no other significant symptoms. He has had no change in his discomfort around the AICD site since he was last here in June of 2018, at which time he also was evaluated and had a negative stress test. His last echocardiogram he tells me was done at [facility] about 3 months ago. We do not yet have those records, but he was seen at that time by Dr. Rendon and Dr. Hong and his insurance has again changed and also been now scheduled to see Dr. Post in followup in October. His AICD was interrogated this morning and it has normal function. He has had some episodes recently, where he appeared to be having some volume overload, but this is now resolved. Otherwise, the patient denies any chest pain or shortness of breath or any other symptoms at this time. PAST MEDICAL HISTORY: Significant for coronary artery disease, ischemic cardiomyopathy, bypass surgery, hypertension, hyperlipidemia, history of anemia, history of biceps tear in 1999. FAMILY HISTORY: Positive for coronary artery disease. SOCIAL HISTORY: He denies any alcohol or tobacco abuse. MEDICATIONS: Prior to admission include aspirin, Plavix, metformin, atorvastatin, Coreg, ferrous sulfate, furosemide, Entresto, and spironolactone. ALLERGIES: HE SAYS HE IS ALLERGIC TO CODEINE, WHICH UPSETS HIS STOMACH. REVIEW OF SYSTEMS: A 12-point review of systems was unremarkable except what is noted in the history of present illness and he complains of occasional nausea. He also complains of some mild right lower extremity swelling at times. There was none noted today. PHYSICAL EXAMINATION: GENERAL: Reveals a well-developed, well-nourished gentleman, in no acute distress. VITAL SIGNS: Blood pressure is 125/80. He is afebrile. Heart rate is in the 60s and shows a sinus rhythm, respiratory rate is 22, and O2 saturation is 100%. HEENT: Shows the head to be normocephalic and atraumatic. Carotid pulses are present. There were no bruits. CHEST: Clear to auscultation without rales, rhonchi, or wheezing. CARDIOVASCULAR: Exam reveals a regular rate and rhythm. There were no significant murmurs, heaves, thrills, bruits, or rubs noted. ABDOMEN: Soft and nontender. Somewhat obese. Positive bowel sounds are present. No organomegaly or masses were noted. Femoral pulses are present. EXTREMITIES: Showed no clubbing, cyanosis, or edema. Pedal pulses were also present. He has a well-healed lower extremity incisions on both sides after saphenous vein graft retrieval. NEUROLOGIC: He appears to be fully intact. There was no evidence of any gross focal motor deficits. He has normal strength and tone. His skin is warm and dry. Neurologically, the patient is also alert, oriented, and without any significant abnormalities that were noted. DIAGNOSTIC DATA: His EKG shows a sinus rhythm with nonspecific EKG changes with T-wave inversion in the lateral leads with evidence of possible LVH due to increased voltage in the anterior leads and possible old inferior myocardial infarction, but otherwise no significant abnormalities. LABORATORY DATA: Negative for any evidence of myocardial infarction. His blood sugar was slightly elevated with 143, is now down to 109. Potassium is 4.4, sodium 138, his BUN is 21 with a creatinine of 1.22. Cardiac enzymes are negative. His CK was slightly elevated at 263, but cardiac enzymes are negative. His hemoglobin is 11.5, WBC of 5.8, and platelet count was 232,000. His chest x-ray also was unremarkable. He has evidence of a previous sternotomy with wires and he has an AICD in place without any evidence of abnormalities there either. IMPRESSION: 1. Elderly gentleman with facial tingling of uncertain etiology. He may need to eventually be evaluated by the neurologist, but I do not see anything here from a cardiac standpoint would account for that. 2. History of coronary artery disease. This appears to be stable at this time. He is status post bypass surgery. He denies any chest pain that appears to be cardiac in nature. 3. Status post AICD implant with some discomfort around the site at times around the device with some pressure, but this has been unchanged since the device was implanted. It comes and goes, not associated with any particular activity. 4. Ischemic cardiomyopathy according to the nuclear study. The last ejection fraction by nuclear study was estimated at 42%. He did say he had a recent echocardiogram at [facility], we will try to obtain those records to see whether or not he has had improvement in his left ventricular systolic function since the last echocardiogram performed here, which was in September of 2016, at which time the ejection fraction by echo was significantly decreased to 25% to 30%. At this time, from a cardiac standpoint, I believe the patient is stable for discharge. He has a followup to see Dr. Post in October. I would advise him to continue that followup. Also, please note he did have the AICD interrogated today and was found to have normal function. Job ID: [id number]
[2018-09-06] MEDS ORDERED: metFORMIN 500 MG TAB PO SCH (17:00)
[2018-09-06] MEDS ORDERED: Atorvastatin Calcium 20 MG TAB PO SCH (21:00)
[2018-09-06] MEDS ORDERED: Carvedilol 6.25 MG TAB PO SCH (21:00)
[2018-09-06] MEDS ORDERED: VALSARTAN PO SCH (21:00)
[2018-09-06] MEDS ORDERED: SPIRONOLACTONE 12.5 MG PO SCH (21:00)
[2018-09-06] MEDS ORDERED: SACUBITRIL PO SCH (21:00)
[2018-09-07] MEDS ORDERED: Aspirin 81 mg Enteric Coated Tablet PO SCH (09:00)
[2018-09-07] MEDS ORDERED: Clopidogrel Bisulfate 75 MG TAB PO SCH (09:00)
[2018-09-07] MEDS ORDERED: Furosemide 40 MG TAB PO SCH (09:00)
[2018-09-07] MEDS ORDERED: Ferrous Sulfate 325 MG TAB PO SCH (09:00)
== END 2018-09-06 12:31 | disposition home or self-care (01) ==
LOC: ERS 17:56 → 2SW 23:00
PROVIDERS: ADMIT Hospitalist; ATTEND Hospitalist
DX: R07.89 Other chest pain (principal); N17.9 Acute kidney failure, unspecified; I11.0 Hypertensive heart disease with heart failure; I50.22 Chronic systolic (congestive) heart failure; I25.10 Atherosclerotic heart disease of native coronary artery without angina pectoris; I25.5 Ischemic cardiomyopathy; E78.5 Hyperlipidemia, unspecified; M10.9 Gout, unspecified; E11.9 Type 2 diabetes mellitus without complications; E66.9 Obesity, unspecified; Z68.31 Body mass index [BMI] 31.0-31.9, adult; Z79.02 Long term (current) use of antithrombotics/antiplatelets; Z79.82 Long term (current) use of aspirin; Z79.84 Long term (current) use of oral hypoglycemic drugs; Z79.899 Other long term (current) drug therapy; Z95.1 Presence of aortocoronary bypass graft; Z95.810 Presence of automatic (implantable) cardiac defibrillator; Z98.890 Other specified postprocedural states
CPT/HCPCS: 71045; 80048; 80053; 82550; 82962; 83690; 83735; 83880; 84484 ×3; 85025 ×2; 85379; 93005; 96374; 99285; G0378 ×3; 36415; 36416; S0028

== ENCOUNTER 2018-10-20 02:12 | Emergency (ER) | payer MEDICARE ==
[2018-10-20 02:56] LABS: #Basophils 0.1 thou/uL (0.0-0.2); #Eosinphils 0.4 thou/uL (0.0-0.7); #Lymphocytes 2.8 thou/uL (1.20-3.40); #Neutrophils 3.2 thou/uL (1.40-6.50); %Basophils 1.4 % (0.0-1.0); %Eosinophils 5.2 % (0.0-10.0); %Lymphocytes 36.9 % (21.0-51.0); %Monocytes 13.9 % (0.0-10.0); %Neutrophils 42.6 % (42.0-75.0); Hemoglobin 12.7 g/dL (14.0-18.0); Mean Corpuscular HGB CONC 33.1 g/dL (32.0-36.0); Mean Corpuscular Hemoglobin 31.1 pg (27.0-31.0); Mean Corpuscular Volume 93.9 fL (78.0-98.0); Mean Platelet Volume 7.9 fL (7.4-10.4); Platelet Count 235 thou/uL (130-400); RBC Distribution Width 13.2 % (11.5-14.5); Red Blood Cell (RBC) Count 4.07 mill/uL (4.70-6.10); White Blood Cell (WBC) Count 7.5 thou/uL (4.8-10.8)
[2018-10-20 03:16] LABS: ALT (SGPT) 19 U/L (8-55); AST (SGOT) 20 U/L (5-34); Albumin 4.4 g/dL (3.4-4.8); Alkaline Phosphatase 83 U/L (40-150); Anion Gap 12 mmol/L (10-20); BUN (Urea Nitrogen) 34 mg/dL (8.4-25.7); Bilirubin, Total 0.3 mg/dL (0.2-1.2); Calc. Creatinine Clearance 0 mL/min (70-130); Calcium 9.8 mg/dL (7.8-10.44); Carbon Dioxide 25 mmol/L (23-31); Chloride 103 mmol/L (98-107); Estimated GFR-MDRD 51; Globulin 3.8 g/dL (2.4-3.5); Glucose 111 mg/dL (80-115); Potassium 4.4 mmol/L (3.5-5.1); Protein, Total 8.2 g/dL (5.8-8.1); Sodium 136 mmol/L (136-145)
--- NOTE | 2018-10-20 07:47 | RAD ---
EXAM: Portable chest PROVIDED CLINICAL HISTORY: Dyspnea COMPARISON: 09/05/2018 FINDINGS: Cardiac and mediastinal silhouettes is unchanged in appearance. Median sternotomy changes and left palacio bclavian cardiac pacing device are again noted. No focal consolidation, pleural fluid or pneumothorax evident. IMPRESSION: No evidence for an acute cardiopulmonary process.
== END 2018-10-20 06:03 | disposition home or self-care (01) ==
LOC: ERS 02:12
DX: R06.02 Shortness of breath (principal); E11.9 Type 2 diabetes mellitus without complications; E78.5 Hyperlipidemia, unspecified; E78.00 Pure hypercholesterolemia, unspecified; I10 Essential (primary) hypertension; J45.909 Unspecified asthma, uncomplicated; Z79.899 Other long term (current) drug therapy; Z79.82 Long term (current) use of aspirin; Z79.84 Long term (current) use of oral hypoglycemic drugs
CPT/HCPCS: 36415; 71045; 80053; 83880; 84484; 85025; 93005; 94760

== ENCOUNTER 2018-12-02 07:39 | Day surgery (SDC) | payer MEDICARE ==
[2018-11-29 08:46] VITALS: BMI 30.5
--- NOTE | 2018-12-02 14:33 | OP ---
DATE OF PROCEDURE: 12/02/2018 PREPROCEDURE DIAGNOSIS: Screening colonoscopy. POSTPROCEDURE DIAGNOSES: 1. A 5-mm semi-pedunculated polyp in the ascending colon, removed by hot snare polypectomy. 2. Otherwise normal colonoscopy. RECOMMENDATIONS: 1. Await histopathology. 2. Resume Plavix and home medications. ANESTHESIA: TIVA. PROCEDURE IN DETAIL: The patient was informed of the risk, benefits, and possible complications of endoscopy including perforation, reaction to medication, and aspiration. Informed consent was obtained. The patient was brought to the endoscopy suite, where he was sedated in standard fashion. Once he was comfortable, rectal examination was performed, which was normal. The endoscope was passed through the anal canal through the colon to the cecum, which was identified by ileocecal valve and appendiceal orifice. The prep was good. The endoscope was then slowly removed. Good visualization of the mucosa. One 5-mm semi pedunculated polyp was found on the ascending colon, removed by hot snare polypectomy. No other polyps were seen throughout the mid colon. Retroflexed views were normal. The scope was removed. The patient tolerated the procedure well. There were no complications. Job ID: [id number]
== END 2018-12-02 11:15 | disposition home or self-care (01) ==
LOC: SDC 07:39
PROVIDERS: ATTEND Internal Medicine Gastroenterology
PROC: 0DBK8ZX Excision of Ascending Colon, Via Natural or Artificial Opening Endoscopic, Diagnostic (ICD-10-PCS; principal; 2018-12-02)
DX: Z12.11 Encounter for screening for malignant neoplasm of colon (principal); D12.2 Benign neoplasm of ascending colon; E11.9 Type 2 diabetes mellitus without complications; E78.5 Hyperlipidemia, unspecified; I10 Essential (primary) hypertension; Z79.02 Long term (current) use of antithrombotics/antiplatelets; Z79.82 Long term (current) use of aspirin; Z79.84 Long term (current) use of oral hypoglycemic drugs; Z79.899 Other long term (current) drug therapy; Z88.5 Allergy status to narcotic agent; Z95.1 Presence of aortocoronary bypass graft; Z95.810 Presence of automatic (implantable) cardiac defibrillator
CPT/HCPCS: 88305

== ENCOUNTER 2019-01-21 20:13 | Observation (INO) | payer MEDICARE ==
--- NOTE | 2019-01-21 20:54 | RAD ---
Portable frontal chest radiograph: 01/21/2019 COMPARISON: 10/20/2018 HISTORY: Chest pain FINDINGS: Midline sternotomy wires and stable transvenous pacing device noted. Stable atherosclerotic calcification of the aortic arch. No pneumothorax, pleural fluid, lobar consolidation, or alveolar edema. IMPRESSION: No acute findings.
[2019-01-21 20:59] LABS: #Basophils 0.1 thou/uL (0.0-0.2); #Eosinphils 0.3 thou/uL (0.0-0.7); #Lymphocytes 2.3 thou/uL (1.20-3.40); #Neutrophils 3.2 thou/uL (1.40-6.50); %Basophils 1.1 % (0.0-1.0); %Eosinophils 4.9 % (0.0-10.0); %Lymphocytes 33.9 % (21.0-51.0); %Monocytes 13.9 % (0.0-10.0); %Neutrophils 46.2 % (42.0-75.0); Hemoglobin 12.2 g/dL (14.0-18.0); Mean Corpuscular HGB CONC 32.2 g/dL (32.0-36.0); Mean Corpuscular Hemoglobin 29.9 pg (27.0-31.0); Mean Corpuscular Volume 93.1 fL (78.0-98.0); Mean Platelet Volume 7.9 fL (7.4-10.4); Platelet Count 231 thou/uL (130-400); RBC Distribution Width 13.1 % (11.5-14.5); Red Blood Cell (RBC) Count 4.08 mill/uL (4.70-6.10); White Blood Cell (WBC) Count 6.9 thou/uL (4.8-10.8)
[2019-01-21 21:12] LABS: ALT (SGPT) 17 U/L (8-55); AST (SGOT) 19 U/L (5-34); Albumin 4.2 g/dL (3.4-4.8); Alkaline Phosphatase 85 U/L (40-110); Anion Gap 14 mmol/L (10-20); BUN (Urea Nitrogen) 32 mg/dL (8.4-25.7); Bilirubin, Total 0.2 mg/dL (0.2-1.2); Calc. Creatinine Clearance 0 mL/min (70-130); Calcium 9.8 mg/dL (7.8-10.44); Carbon Dioxide 27 mmol/L (23-31); Chloride 102 mmol/L (98-107); Estimated GFR-MDRD 45; Globulin 4.1 g/dL (2.4-3.5); Glucose 118 mg/dL (80-115); Lipase 24 U/L (8-78); Potassium 4.5 mmol/L (3.5-5.1); Protein, Total 8.3 g/dL (5.8-8.1); Sodium 138 mmol/L (136-145)
[2019-01-21 21:34] LABS: CKMB 3.2 ng/mL (0-6.6)
[2019-01-22 00:36] LABS: Troponin I Less than 0.010 ng/mL (< 0.028)
[2019-01-22] MEDS ORDERED: Acetaminophen 650 MG Suppository PR PRN (00:57)
[2019-01-22] MEDS ORDERED: Ondansetron ODT 4 MG TAB PO PRN (00:57)
[2019-01-22] MEDS ORDERED: Ondansetron PF 4 MG/2 ML Vial IVP PRN (00:57)
[2019-01-22] MEDS ORDERED: Acetaminophen 325 MG TAB PO PRN (00:57)
[2019-01-22] MEDS ORDERED: Dextrose 5% in Water 1,000 ML IV PRN (01:05)
[2019-01-22] MEDS ORDERED: HumaLOG 300 UNITS/3 ML VIAL SC PRN ×2 (01:05)
[2019-01-22] MEDS ORDERED: Dextrose 50% Abboject 50 ML SYRINGE SLOW IVP PRN (01:05)
[2019-01-22 03:04] LABS: #Basophils 0.1 thou/uL (0.0-0.2); #Eosinphils 0.3 thou/uL (0.0-0.7); #Lymphocytes 2.9 thou/uL (1.20-3.40); #Monocytes 0.8 thou/uL (0.11-0.59); #Neutrophils 2.8 thou/uL (1.40-6.50); %Basophils 1.4 % (0.0-1.0); %Eosinophils 4.8 % (0.0-10.0); %Lymphocytes 42.2 % (21.0-51.0); %Monocytes 11.3 % (0.0-10.0); %Neutrophils 40.3 % (42.0-75.0); Hemoglobin 12.2 g/dL (14.0-18.0); Mean Corpuscular HGB CONC 33.5 g/dL (32.0-36.0); Mean Corpuscular Hemoglobin 31.2 pg (27.0-31.0); Mean Corpuscular Volume 93.1 fL (78.0-98.0); Mean Platelet Volume 7.6 fL (7.4-10.4); Platelet Count 211 thou/uL (130-400); RBC Distribution Width 12.9 % (11.5-14.5); Red Blood Cell (RBC) Count 3.92 mill/uL (4.70-6.10); White Blood Cell (WBC) Count 6.9 thou/uL (4.8-10.8)
--- NOTE | 2019-01-22 03:24 | HP ---
TIME OF ASSESSMENT: 2299. CHIEF COMPLAINT: Chest pain. HISTORY OF PRESENT ILLNESS: Mr. Evangelista is a 63-year-old gentleman, with multiple comorbidities, who presents with complaints of chest pain described as a pressure going on for the last several months. He is unable to pinpoint exactly how long and states that he has been seen by his ballet master/mistress, Dr. Post, who scheduled investigations for next Sunday. The patient has undergone a five-vessel CABG in the past. He states the pressure has been intermittent and on occasion he experiences sharp pain to the left side of his chest. He states the discomfort is a 5/10 in severity. States what prompted the visit to the emergency department today is that he began to experience frequent pain throughout the day. He also noted some shortness of breath while lying down and states he experienced a long period of time with substernal chest pressure yesterday evening when he went to bed. He found that it was difficult to breathe when lying flat, and therefore this prompted him to sleep in the recliner last night. Given the fact that the pain persisted throughout the day, he came in for further evaluation. At this present time, the patient states the pain has resolved. He is resting on the stretcher and is able to lie flat without difficulty. In the emergency department, he had an EKG which showed normal sinus rhythm. He was given 4 mg of morphine and 1 L of normal saline as well as Zofran. According to the ED note, the patient was given 324 mg by EMS as well as a dose of nitroglycerin. Chest x-ray was done showing no acute findings. He had laboratory studies done showing a white count of 6.9, hemoglobin of 12.2, hematocrit 38, platelets 231. Sodium 138, potassium 4.5, BUN 32, creatinine 1.84, GFR 45. Renal function slightly up from baseline. Glucose of 118, magnesium of 2.2. LFTs unremarkable. Albumin 4.2, and lipase 24. Initial troponin negative. PAST MEDICAL HISTORY: 1. Hypertension. 2. Hyperlipidemia. 3. Diabetes mellitus. 4. Coronary artery disease. 5. Asthma. 6. CHF. 7. Gout. PAST SURGICAL HISTORY: 1. CABG x5. 2. AICD/AFib placement. 3. Biceps tendon repair. SOCIAL HISTORY: The patient denies any tobacco use, alcohol consumption, or illicit drug use. He lives at home with his . He is fully independent and mobilizes without any assistive devices. ALLERGIES: CODEINE. CURRENT MEDICATIONS: 1. Ferrous sulfate. 2. Carvedilol. 3. Atorvastatin. 4. Metformin. 5. Clopidogrel. 6. Spironolactone. 7. Aspirin. 8. Lasix. PHYSICAL EXAMINATION: GENERAL: The patient appears well developed, well nourished, is in no acute distress. VITAL SIGNS: Temperature 98.2, pulse 60, blood pressure 131/75, respirations 15, O2 saturation 99% on room air. HEENT: Normocephalic and atraumatic. Pupils are equal, round, and reactive to light. Sclerae without icterus. Oropharynx is clear. NECK: Supple. No lymphadenopathy. LUNGS: Clear to auscultation bilaterally without any wheezes, rales, or rhonchi. CARDIAC: Regular rate and rhythm without audible murmurs, rubs, or gallops. No reproducible pain on palpation of the chest wall. ABDOMEN: Soft, nontender, nondistended. Normoactive bowel sounds present. EXTREMITIES: No lower leg swelling or edema. NEUROLOGIC: Alert and oriented x3. No neuro deficits. SKIN: Normal, warm and dry. INVESTIGATIONS: As mentioned above in HPI. IMPRESSION AND PLAN: Mr. Evangelista is a pleasant 63-year-old gentleman who presents with complaints of chest pressure/pain and is being admitted for management of the following. 1. Acute coronary syndrome rule out. We will continue to trend troponins. The patient has a history of a coronary artery bypass graft in the past. He had a stress test in June 2018, that showed evidence of a scar of the septum from prior infarction with dyskinesia and low EF of 42%. His last echo on file is from September 2016. We will consult his ballet master/mistress, Dr. Post. 2. Cardiomyopathy. The patient with an echo in September 2016 showing an EF of 25% to 30%. We will request a repeat echo and add a BNP. He has an automatic implantable cardioverter-defibrillator/defibrillator in place. We will obtain a printout. 3. Hypertension. Monitor blood pressure. Resume home medications once verified. 4. Hyperlipidemia. Resume home medications once verified. 5. Diabetes mellitus. Resume home medications once verified, hold metformin. Monitor glucose and initiate insulin sliding scale. 6. Gastrointestinal prophylaxis with famotidine. 7. Deep venous thrombosis prophylaxis with mechanical sequential compression devices. Walking program consulted. 8. Code status full. Surrogate decision maker is his , Bobo Evangelista. The patient's case was discussed with attending who agrees upon care as described above. Job ID: [id number]
[2019-01-22 03:29] LABS: Troponin I Less than 0.010 ng/mL (< 0.028)
[2019-01-22 03:52] LABS: Anion Gap 14 mmol/L (10-20); BUN (Urea Nitrogen) 36 mg/dL (8.4-25.7); Calc. Creatinine Clearance 0 mL/min (70-130); Calcium 9.7 mg/dL (7.8-10.44); Carbon Dioxide 25 mmol/L (23-31); Chloride 104 mmol/L (98-107); Estimated GFR-MDRD 52; Glucose 119 mg/dL (80-115); Potassium 4.3 mmol/L (3.5-5.1); Sodium 139 mmol/L (136-145)
[2019-01-22] MEDS ORDERED: Famotidine/PF 20 mg/2ml Vial SLOW IVP SCH (09:00)
--- NOTE | 2019-01-22 09:50 | CT ---
Head CT without contrast 01/22/2019: COMPARISON: 10/03/2016 HISTORY: Head trauma on the right TECHNIQUE: Axial CT imaging at 5 mm intervals from vertex through skull base without contrast FINDINGS: The imaged paranasal sinuses and mastoid air cells appear well aerated. There is no displac ed calvarial fracture. There is atherosclerotic calcification of the distal left vertebral artery. There is atherosclerotic calcification of the cavernous carotid arteries. No intracranial hemorrhage, midline shift, mass effect, or ventricular enlargement. IMPRESSION: No intracranial hemorrhage or displaced calvarial fracture.
[2019-01-22] MEDS ORDERED: Regadenoson 0.4 MG/5 ML SYRINGE ONE (10:52)
[2019-01-22 14:39] VITALS: BMI 31.4
[2019-01-22] MEDS: Famotidine/PF 20 mg/2ml Vial SLOW IVP SCH (16:06)
--- NOTE | 2019-01-22 19:05 | PDOC.HOSPP ---
- Subjective Encounter Date: 01/22/19 Encounter Time: 09:20 Subjective: Pt seen for followup re: chest pain. c/o on and off chest pain. c/o facial numbness on right side. - Objective Vital Signs & Weight: Vital Signs (12 hours) Temp Pulse Resp BP Pulse Ox 01/22/19 15:07 98.3 F 70 15 110/56 L 98 01/22/19 12:53 98.3 F 64 16 153/74 H 96 Weight Weight 232 lb Result Diagrams: 01/22/19 02:56 01/22/19 02:56 Additional Labs: Accuchecks 01/22/19 16:52 POC Glucose 148 H Hospitalist ROS - Review of Systems Cardiovascular: reports: chest pain. denies: palpitations, orthopnea, paroxysmal noc. dyspnea, edema, light headedness Gastrointestinal: denies: nausea, vomiting, abdominal pain, diarrhea, constipation, melena, hematochezia Neurological: reports: numbness - Medication Medications: Active Medications Generic Name Dose Route Start Last Admin Trade Name Freq PRN Reason Stop Dose Admin Famotidine 20 mg 01/22/19 09:00 01/22/19 16:06 Pepcid SLOW IVP 20 mg 0900 LESVIA Administration Sodium Chloride 10 ml 01/22/19 00:57 01/22/19 16:06 Flush - Normal Saline IVF 10 ml PRN PRN Administration Saline Flush - Exam General - other findings: Obese Eye: anicteric sclera ENT: moist mucosa Neck: supple Heart: RRR Respiratory: CTAB, no rales Gastrointestinal: soft, non-tender Extremities: no clubbing Skin: no lesions Neurological: normal sensation to touch, no focal deficits Psychiatric: normal affect, normal behavior Hosp A/P (1) Chest pain Code(s): R07.9 - CHEST PAIN, UNSPECIFIED Status: Acute (2) Dyslipidemia Code(s): E78.5 - HYPERLIPIDEMIA, UNSPECIFIED Status: Chronic (3) HTN (hypertension) Code(s): I10 - ESSENTIAL (PRIMARY) HYPERTENSION Status: Chronic Qualifiers: (4) Ischemic cardiomyopathy Code(s): I25.5 - ISCHEMIC CARDIOMYOPATHY Status: Chronic (5) Obesity (BMI 30.0-34.9) Code(s): E66.9 - OBESITY, UNSPECIFIED Status: Chronic (6) Chronic systolic congestive heart failure, NYHA class 2 Code(s): I50.22 - CHRONIC SYSTOLIC (CONGESTIVE) HEART FAILURE Status: Chronic (7) DM2 (diabetes mellitus, type 2) Status: Chronic - Plan Stress test. Check CT brain to r/o bleed, stroke etc. Continue accuchecks, insulin sliding scale. Continue spironolactone, Entresto. HTN controlled.
[2019-01-22] MEDS: Spironolactone 25 MG TAB PO SCH (20:43)
[2019-01-22] MEDS: Furosemide 40 MG TAB PO SCH (20:45)
[2019-01-22] MEDS: Sacubitril 49 MG/Valsartan 51 MG TABLET PO SCH (20:45)
[2019-01-22] MEDS: Carvedilol 25 MG TAB PO SCH (20:46)
[2019-01-22] MEDS ORDERED: Atorvastatin Calcium 40 MG TAB PO SCH (21:00)
[2019-01-23] MEDS ORDERED: Ferrous Sulfate 325 MG TAB PO SCH (09:00)
[2019-01-23] MEDS ORDERED: Clopidogrel Bisulfate 75 MG TAB PO SCH (09:00)
[2019-01-23] MEDS ORDERED: Aspirin 81 mg Enteric Coated Tablet PO SCH (09:00)
[2019-01-23] MEDS: metFORMIN 500 MG TAB PO SCH ×2 (09:16→17:31)
[2019-01-23] MEDS: Furosemide 40 MG TAB PO SCH (09:16)
[2019-01-23] MEDS: Sacubitril 49 MG/Valsartan 51 MG TABLET PO SCH (09:16)
[2019-01-23] MEDS: Famotidine/PF 20 mg/2ml Vial SLOW IVP SCH (09:17)
[2019-01-23] MEDS: Carvedilol 25 MG TAB PO SCH (09:17)
[2019-01-23] MEDS: Spironolactone 25 MG TAB PO SCH (09:17)
--- NOTE | 2019-01-23 09:26 | NM ---
EXAM: CARDIAC SPECT HISTORY: Chest pain, coronary artery disease, CABG, CHF, dyslipidemia TECHNIQUE: A myocardial perfusion scan was performed using the single isotope 2 day protocol with kiki hnetium 99m sestamibi. [32 mCi] was injected intravenously for the rest exam followed by 31 mCifor the stress study. Pharmacologic stress with Lexiscan was monitored and interpreted by Nanod Vigil nurse practitioner FINDINGS: Homogeneous tracer distribution is seen in the myocardial segments on stress and rest image s without fixed or reversible defects. Gated SPECT LVEF: 49% Wall motion exam: No significant wall motion abnormalities are seen. IMPRESSION: No evidence of reversible ischemia.
[2019-01-23] MEDS ORDERED: Iopamidol 370 76% 100 ML VIAL ONE (13:25)
[2019-01-23 15:37] VITALS: BP 123/61; TEMP 97.5
--- NOTE | 2019-01-23 16:19 | CT ---
CT PULMONARY ANGIOGRAM WITH IV CONTRAST AND 3D POSTPROCESSIN01/23/19 HISTORY: Chest pain, shortness of breath. FINDINGS: There is good contrast opacification of the pulmonary arterial vasculature without filling defects to suggest pulmonary embolism. There are vascular calcifications without aneurysmal dilatation of the t horacic aorta. No pleural or pericardial effusions are seen. No pneumothoraces, focal areas of consol idation, or lung nodules/masses are seen. There are degenerative changes of the spine. IMPRESSION: No CT evidence of pulmonary embolism. POS: [facility]UL[facility]
--- NOTE | 2019-01-28 12:16 | STRESS ---
Acquisition Time: 2019-01-22 11:49:45 Total Exercise Time: 00:01:00 Test Indications: CHEST PAIN Medications: Protocol: LEXISCAN Max HR: 093 BPM 60% of Pred: 155 BPM Max BP: 140/080 mmHG Max Work Load: 1.0 METS RESTING ECG: NORMAL SINUS RHYTHM AT 60 BPM WITH NON-SPECIFIC T-WAVE CHANGES SYMPTOMS: NONE NORMAL BP RESPONSE ECTOPY: RARE PVC'S ECG STRESS: T-WAVE CHANGES MORE PRONOUCED WITH LEXISCAN INFUSION INTERPRETATION: INDETERMINATE/AWAIT NUCLEAR IMAGES FOR DEFINITIVE DIAGNOSIS Confirmed by ELIZ VALERO ([id number]) on 01/28/2019 12:16:11 PM Referred By: MD Lou WALTER Confirmed By:ELIZ VALERO
== END 2019-01-23 18:17 | disposition home or self-care (01) ==
LOC: ERS 20:13 → ERHOLD 22:17 → 2SW 01-22 12:43
PROVIDERS: ADMIT Internal Medicine; ATTEND Internal Medicine
DX: R07.89 Other chest pain (principal); E11.9 Type 2 diabetes mellitus without complications; E78.5 Hyperlipidemia, unspecified; I25.10 Atherosclerotic heart disease of native coronary artery without angina pectoris; M10.9 Gout, unspecified; J45.909 Unspecified asthma, uncomplicated; I11.0 Hypertensive heart disease with heart failure; I50.22 Chronic systolic (congestive) heart failure; I48.91 Unspecified atrial fibrillation; I65.23 Occlusion and stenosis of bilateral carotid arteries; I67.2 Cerebral atherosclerosis; I25.5 Ischemic cardiomyopathy; E66.9 Obesity, unspecified; Z68.31 Body mass index [BMI] 31.0-31.9, adult; Z79.02 Long term (current) use of antithrombotics/antiplatelets; Z79.82 Long term (current) use of aspirin; Z79.84 Long term (current) use of oral hypoglycemic drugs; Z79.899 Other long term (current) drug therapy; Z95.1 Presence of aortocoronary bypass graft; Z95.810 Presence of automatic (implantable) cardiac defibrillator
CPT/HCPCS: 70450; 71045; 71275; 78452; 80048; 80053; 82553; 82962 ×2; 83690; 83735; 83880; 84484 ×3; 85025 ×2; 85379; 93005; 93017; 93306; 96374; 96376; 97139 ×2; 99285; A9500; G0378 ×4; 36415; 36416; J2785; Q9967; S0028

== ENCOUNTER 2019-02-07 08:58 | Outpatient (CLI) | payer MEDICARE ==
--- NOTE | 2019-02-07 11:54 | CT ---
CT ANGIOGRAM NECK WITH CONTRAST: DATE: 02/07/2019 HISTORY: 63-year-old male with "subclavian artery stenosis" No additional history available. TECHNIQUE: After IV contrast injection, arterial bolus chasing technique scan performed from pulmonic trunk to i nferior edge of orbits. Coronal and sagittal 3-D MIP reconstructions. FINDINGS: Brachiocephalic: No stenosis. Left subclavian: There is noncalcified plaque causing 2 cm in length of proximal left subclavian jose ry stenosis of moderate degree. There is one short segment of this stenosis that is approximately 75% stenotic, severe. At the level of the origin of the left vertebral artery, the subclavian artery stenosis is mild to mo derate. The origin of the left vertebral artery itself is probably severely stenotic, with heavily calcified plaque obscuring the lumen. The rest of the left subclavian artery distal to that is of nor mal caliber. Right subclavian: The proximal portion of the right subclavian artery has mild stenosis due to noncal cified soft plaque. It is also very irregular in its margins.. The mid and distal portions are obscured by streak artifact from adjacent dense contrast bolus in the right subclavian vein. Right common carotid: No high-grade stenosis. Left common carotid: No high-grade stenosis. Cervical right internal carotid: Calcified and soft plaque proximally, causing mild stenosis at origi n. No high-grade stenosis. Cervical left internal carotid: Mild plaque proximally. No high-grade stenosis. Right vertebral: Diffusely small caliber. A 1 cm vertical length of calcified plaque that obscures th e lumen of proximal right vertebral at the C7 level. Left vertebral: Slightly larger in caliber than the left diffusely. High-grade stenosis at origin as mentioned above. Calcified plaque of bilateral carotid siphons and left intracranial vertebral. Bilateral thyroid nodules. Larynx difficult to evaluate because the glottis is closed during the scan. Asymmetrical effacement o f right piriform sinus, nonspecific. IMPRESSION: 1. High-grade stenosis of proximal left subclavian artery, including a short focus of 75%, severe arjun nosis. 2. Much of the right subclavian artery is obscured by streak artifact from contrast bolus in adjacent right subclavian vein. 3. atherosclerosis of multiple arteries. 4. High-grade stenoses, probably severe, of bilateral proximal vertebral arteries.
== END 2019-02-07 08:59 | disposition home or self-care (01) ==
LOC: CT 08:58
PROVIDERS: ATTEND Internal Medicine Cardiovascular Disease
DX: I77.1 Stricture of artery (principal); I65.03 Occlusion and stenosis of bilateral vertebral arteries; I70.90 Unspecified atherosclerosis
CPT/HCPCS: 70498

== ENCOUNTER 2019-04-27 00:26 | Emergency (ER) | payer MEDICARE | END 2019-04-27 01:05 | disposition home or self-care (01) | LOC: ERS 00:26 | DX: L02.416 Cutaneous abscess of left lower limb (principal); M10.9 Gout, unspecified; E11.9 Type 2 diabetes mellitus without complications; E78.00 Pure hypercholesterolemia, unspecified; E78.5 Hyperlipidemia, unspecified; I11.0 Hypertensive heart disease with heart failure; I50.9 Heart failure, unspecified; Z79.899 Other long term (current) drug therapy; Z79.84 Long term (current) use of oral hypoglycemic drugs; Z79.82 Long term (current) use of aspirin | CPT/HCPCS: 99283 ==

== ENCOUNTER 2020-04-18 20:57 | Observation (INO) | payer MEDICARE ==
[2020-04-18 21:25] LABS: #Eosinphils 0.3 thou/uL (0.0-0.7); #Lymphocytes 2.3 thou/uL (1.20-3.40); #Monocytes 0.8 thou/uL (0.11-0.59); #Neutrophils 3.4 thou/uL (1.40-6.50); %Basophils 0.5 % (0.0-1.0); %Eosinophils 3.9 % (0.0-10.0); %Lymphocytes 33.8 % (21.0-51.0); %Monocytes 12.1 % (0.0-10.0); %Neutrophils 49.6 % (42.0-75.0); Hemoglobin 12.9 g/dL (14.0-18.0); Mean Corpuscular HGB CONC 33.7 g/dL (32.0-36.0); Mean Corpuscular Hemoglobin 32.5 pg (27.0-31.0); Mean Corpuscular Volume 96.5 fL (78.0-98.0); Mean Platelet Volume 8.5 fL (7.4-10.4); Platelet Count 229 thou/uL (130-400); RBC Distribution Width 13.5 % (11.5-14.5); Red Blood Cell (RBC) Count 3.97 mill/uL (4.70-6.10); White Blood Cell (WBC) Count 6.8 thou/uL (4.8-10.8)
[2020-04-18 21:44] LABS: ALT (SGPT) 17 U/L (8-55); AST (SGOT) 17 U/L (5-34); Albumin 3.9 g/dL (3.4-4.8); Alkaline Phosphatase 72 U/L (40-110); Anion Gap 15 mmol/L (10-20); BUN (Urea Nitrogen) 31 mg/dL (8.4-25.7); Bilirubin, Total 0.2 mg/dL (0.2-1.2); Calc. Creatinine Clearance 0 mL/min (70-130); Calcium 9.1 mg/dL (7.8-10.44); Carbon Dioxide 24 mmol/L (23-31); Chloride 102 mmol/L (98-107); Globulin 3.9 g/dL (2.4-3.5); Glucose 169 mg/dL (80-115); Lipase 21 U/L (8-78); Potassium 4.8 mmol/L (3.5-5.1); Protein, Total 7.8 g/dL (5.8-8.1); Sodium 136 mmol/L (136-145)
[2020-04-18] MEDS ORDERED: Aspirin Chewable 81 MG TAB ONE (22:10)
[2020-04-18] MEDS ORDERED: Nitroglycerin 2% Ointment 1 INCH/1 GM Packet ONE (22:10)
[2020-04-19] MEDS ORDERED: Acetaminophen 325 MG TAB PO PRN (01:16)
[2020-04-19 01:40] LABS: Troponin I 0.011 ng/mL (< 0.028)
[2020-04-19 02:09] VITALS: BMI 29.9
[2020-04-19 05:31] LABS: Troponin I 0.017 ng/mL (< 0.028)
[2020-04-19] MEDS ORDERED: Ondansetron PF 4 MG/2 ML Vial IVP PRN (06:38)
[2020-04-19] MEDS ORDERED: Dextrose 50% Abboject 50 ML SYRINGE SLOW IVP PRN (06:43)
[2020-04-19] MEDS ORDERED: HumaLOG 300 UNITS/3 ML VIAL SC PRN (06:43)
[2020-04-19] MEDS ORDERED: Dextrose 5% in Water 1,000 ML IV PRN (06:43)
[2020-04-19] MEDS ORDERED: Sodium Chloride 0.9% 1,000 ML IV SCH (06:45)
[2020-04-19 08:45] LABS: SARS-CoV-2 PCR by NAA Not Detected (NotDetected)
[2020-04-19] MEDS ORDERED: Aspirin Chewable 81 MG TAB PO SCH (09:00)
[2020-04-19] MEDS ORDERED: Regadenoson 0.4 MG/5 ML SYRINGE ONE (11:40)
[2020-04-19] MEDS ORDERED: Clopidogrel Bisulfate 75 MG TAB PO SCH (16:00)
[2020-04-19 16:03] LABS: Cardiac Risk 3.2 (Less than 4.5)
[2020-04-19 17:20] VITALS: BP 138/66; TEMP 97.8
[2020-04-19] MEDS ORDERED: Sacubitril 49 MG/Valsartan 51 MG TABLET PO SCH (21:00)
[2020-04-19] MEDS ORDERED: Furosemide 40 MG TAB PO SCH (21:00)
[2020-04-19] MEDS ORDERED: Spironolactone 25 MG TAB PO SCH (21:00)
[2020-04-19] MEDS ORDERED: Atorvastatin Calcium 40 MG TAB PO SCH ×2 (21:00)
[2020-04-19] MEDS ORDERED: Non-Formulary Item 1 EACH (Ranolazine [Ranolazine Er] 1,000 MG Tab.Er.12h) PO SCH (21:00)
[2020-04-19] MEDS ORDERED: Enoxaparin Sodium 40 MG/0.4 ML SYRINGE SC SCH (21:00)
[2020-04-20] MEDS ORDERED: Ferrous Sulfate 325 MG TAB PO SCH (08:00)
[2020-04-20] MEDS ORDERED: Aspirin 81 mg Enteric Coated Tablet PO SCH (09:00)
[2020-04-20] MEDS ORDERED: Clopidogrel Bisulfate 75 MG TAB PO SCH (09:00)
[2020-04-20] MEDS ORDERED: Carvedilol 25 MG TAB PO SCH (09:00)
== END 2020-04-19 19:28 | disposition home or self-care (01) ==
LOC: ERS 20:57 → 2NO 22:42
PROVIDERS: ADMIT Internal Medicine; ATTEND Internal Medicine
DX: R07.89 Other chest pain (principal); I25.5 Ischemic cardiomyopathy; I13.0 Hypertensive heart and chronic kidney disease with heart failure and stage 1 through stage 4 chronic kidney disease, or unspecified chronic kidney disease; E11.22 Type 2 diabetes mellitus with diabetic chronic kidney disease; N18.30 Chronic kidney disease, stage 3 unspecified; I50.43 Acute on chronic combined systolic (congestive) and diastolic (congestive) heart failure; N17.9 Acute kidney failure, unspecified; I25.10 Atherosclerotic heart disease of native coronary artery without angina pectoris; I44.7 Left bundle-branch block, unspecified; E78.5 Hyperlipidemia, unspecified; J45.909 Unspecified asthma, uncomplicated; E78.00 Pure hypercholesterolemia, unspecified; E66.9 Obesity, unspecified; Z68.30 Body mass index [BMI] 30.0-30.9, adult; Z79.02 Long term (current) use of antithrombotics/antiplatelets; Z79.82 Long term (current) use of aspirin; Z79.84 Long term (current) use of oral hypoglycemic drugs; Z79.899 Other long term (current) drug therapy; Z88.5 Allergy status to narcotic agent; Z95.1 Presence of aortocoronary bypass graft; Z95.810 Presence of automatic (implantable) cardiac defibrillator; Z20.822 Contact with and (suspected) exposure to COVID-19
CPT/HCPCS: 71045; 78452; 80053; 80061; 82962; 83036; 83690; 84484 ×3; 85025; 93005; 93017; 99285; A9500; G0378 ×2; U0003; U0005; 36415; 36416; 87635; J2785

== ENCOUNTER 2021-09-15 11:40 | Emergency (ER) | payer MEDICARE ==
[2021-09-15 12:54] LABS: #Eosinphils 0.1 thou/uL (0.0-0.7); #Lymphocytes 1.6 thou/uL (1.20-3.40); #Monocytes 0.9 thou/uL (0.11-0.59); #Neutrophils 3.6 thou/uL (1.40-6.50); %Basophils 0.1 % (0.0-1.0); %Eosinophils 2.3 % (0.0-10.0); %Lymphocytes 25.2 % (21.0-51.0); %Monocytes 14.1 % (0.0-10.0); %Neutrophils 58.3 % (42.0-75.0); Hemoglobin 13.3 g/dL (14.0-18.0); Mean Corpuscular HGB CONC 31.5 g/dL (32.0-36.0); Mean Corpuscular Volume 98.5 fL (78.0-98.0); Mean Platelet Volume 7.9 fL (7.4-10.4); Platelet Count 227 thou/uL (130-400); RBC Distribution Width 13.4 % (11.5-14.5); Red Blood Cell (RBC) Count 4.31 mill/uL (4.70-6.10); White Blood Cell (WBC) Count 6.2 thou/uL (4.8-10.8)
[2021-09-15 13:16] LABS: ALT (SGPT) 15 U/L (8-55); AST (SGOT) 16 U/L (5-34); Albumin 4.1 g/dL (3.4-4.8); Alkaline Phosphatase 77 U/L (40-110); Anion Gap 15 mmol/L (10-20); BUN (Urea Nitrogen) 36 mg/dL (8.4-25.7); Bilirubin, Total 0.4 mg/dL (0.2-1.2); Calc. Creatinine Clearance 0 mL/min (70-130); Calcium 9.7 mg/dL (7.8-10.44); Carbon Dioxide 24 mmol/L (23-31); Chloride 106 mmol/L (98-107); Estimated GFR 33; Globulin 3.9 g/dL (2.4-3.5); Glucose 116 mg/dL (80-115); Potassium 4.6 mmol/L (3.5-5.1); Sodium 140 mmol/L (136-145)
== END 2021-09-15 15:40 | disposition home or self-care (01) ==
LOC: ERS 11:40
DX: M25.572 Pain in left ankle and joints of left foot (principal); M25.472 Effusion, left ankle; I11.0 Hypertensive heart disease with heart failure; I50.9 Heart failure, unspecified; E11.9 Type 2 diabetes mellitus without complications; E78.5 Hyperlipidemia, unspecified; E78.00 Pure hypercholesterolemia, unspecified; J45.909 Unspecified asthma, uncomplicated; M10.9 Gout, unspecified; Z79.82 Long term (current) use of aspirin; Z79.899 Other long term (current) drug therapy
CPT/HCPCS: 36415; 80053; 85025; 93005

== ENCOUNTER 2022-02-24 19:21 | Inpatient (IN) | payer MEDICARE ==
[2022-02-24 19:52] LABS: Hemoglobin 12.4 g/dL (14.0-18.0); Mean Corpuscular HGB CONC 32.8 g/dL (32.0-36.0); Mean Corpuscular Hemoglobin 31.3 pg (27.0-31.0); Mean Corpuscular Volume 95.3 fl (78.0-98.0); Mean Platelet Volume 7.9 fL (7.4-10.4); Platelet Count 244 10x3/uL (130-400); RBC Distribution Width 12.7 % (11.5-14.5); Red Blood Cell (RBC) Count 3.96 mill/uL (4.70-6.10); White Blood Cell (WBC) Count 18.7 10x3/uL (4.8-10.8)
[2022-02-24 20:01] LABS: INR-International Normal Ratio 1.6; Prothrombin Time 19.6 sec (12.0-14.7)
[2022-02-24 20:02] LABS: PTT 85.5 sec (22.9-36.1)
[2022-02-24 20:08] LABS: Band 8 % (5-11); Lymphocytes 5 % (21-51); MDiff Complete? YES; Monocytes 11 % (0-10); Neutrophil 76 % (42-75); RBC Morphology Normal; Vacuoles SLIGHT
[2022-02-24 20:12] LABS: ALT (SGPT) 9 U/L (8-55); AST (SGOT) 16 U/L (5-34); Albumin 3.7 g/dL (3.4-4.8); Alkaline Phosphatase 77 U/L (40-110); Anion Gap 12 mmol/L (10-20); BUN (Urea Nitrogen) 29 mg/dL (8.4-25.7); Bilirubin, Total 0.6 mg/dL (0.2-1.2); Calc. Creatinine Clearance 0 mL/min (70-130); Calcium 8.9 mg/dL (7.8-10.44); Carbon Dioxide 20 mmol/L (23-31); Chloride 105 mmol/L (98-107); Estimated GFR 32; Globulin 3.8 g/dL (2.4-3.5); Glucose 139 mg/dL (80-115); Potassium 4.2 mmol/L (3.5-5.1); Protein, Total 7.5 g/dL (5.8-8.1); Sodium 133 mmol/L (136-145)
[2022-02-24] MEDS ORDERED: Piperacillin/Tazobactam 3.375 GM VIAL ONE (20:12)
[2022-02-24] MEDS ORDERED: Vancomycin 1 GM/200 ML (FROZEN) BAG ONE (20:12)
[2022-02-24] MEDS ORDERED: Acetaminophen 500 MG TAB ONE (21:01)
[2022-02-24 21:22] LABS: SARS-CoV-2 NAA Rapid Test DETECTED (NotDetected)
[2022-02-24 21:35] LABS: Bacteria/HPF 4+ HPF (None Seen); Bilirubin Negative (Negative); Blood, Urine Negative (Negative); Clarity Turbid (Clear); Glucose, Urine (Dipstick) Greater than 1000 mg/dL (Negative); Ketone, Urine Trace mg/dL (Negative); Leukocyte 500 Leu/uL (Negative); Nitrite 1+ (Negative); Protein, Urine (Dipstick) 10 mg/dL (Neg-Trace); RBC/HPF 0-3 HPF (0-3); Specific Gravity, Urine 1.016 (1.002-1.036); Squamous Epithelial 0-3 HPF (0-3); Urobilinogen Normal mg/dL (Less than 2); WBC/HPF Greater than 50 HPF (0-3)
[2022-02-24] MEDS ORDERED: NOREPINEPHRINE 8 MG/250 ML-D5W 250 ML ONE (21:42)
[2022-02-24] MEDS ORDERED: Lidocaine 1% w/Epinephrine 1:100K 20 ML VIAL ONE (21:51)
[2022-02-24] MEDS ORDERED: Sodium Chloride 0.9% 1,000 ML IV SCH (23:15)
[2022-02-24] MEDS ORDERED: NOREPINEPHRINE 8 MG/250 ML-D5W 250 ML IVPB SCH (23:15)
[2022-02-24 23:41] VITALS: BMI 30.6
[2022-02-24] MEDS ORDERED: Vancomycin HCl 500 MG in Sodium Chloride 0.9% 100 ML IVPB SCH (23:59)
[2022-02-25] MEDS: Piperacillin/Tazobactam 3.375 GM in Sodium Chloride 0.9% 100 ML IVPB SCH ×2 (00:30→10:20)
[2022-02-25 05:22] LABS: Hemoglobin 11.2 g/dL (14.0-18.0); Mean Corpuscular HGB CONC 31.6 g/dL (32.0-36.0); Mean Corpuscular Hemoglobin 30.7 pg (27.0-31.0); Mean Platelet Volume 7.9 fL (7.4-10.4); Platelet Count 227 10x3/uL (130-400); RBC Distribution Width 12.9 % (11.5-14.5); Red Blood Cell (RBC) Count 3.66 mill/uL (4.70-6.10); White Blood Cell (WBC) Count 19.6 10x3/uL (4.8-10.8)
[2022-02-25 05:41] LABS: Anion Gap 13 mmol/L (10-20); BUN (Urea Nitrogen) 23 mg/dL (8.4-25.7); Calc. Creatinine Clearance 61 mL/min (70-130); Calcium 8.2 mg/dL (7.8-10.44); Carbon Dioxide 17 mmol/L (23-31); Chloride 111 mmol/L (98-107); Estimated GFR 44; Glucose 105 mg/dL (80-115); Phosphorus 2.2 mg/dL (2.3-4.7); Sodium 137 mmol/L (136-145)
[2022-02-25 05:54] LABS: Band 14 % (5-11); Lymphocytes 2 % (21-51); MDiff Complete? YES; Monocytes 11 % (0-10); Neutrophil 73 % (42-75); Vacuoles SLIGHT
[2022-02-25] MEDS ORDERED: Vancomycin 1 GM in Premix Bag 1 BAG IVPB SCH (09:00)
[2022-02-25] MEDS ORDERED: Heparin 5,000 UNITS/ML VIAL SC SCH (09:00)
[2022-02-25] MEDS ORDERED: Aspirin 81 mg Enteric Coated Tablet PO SCH (09:30)
[2022-02-25] MEDS ORDERED: Clopidogrel Bisulfate 75 MG TAB PO SCH (09:30)
[2022-02-25] MEDS: Heparin 5,000 UNITS/ML VIAL SC SCH ×2 (10:17→21:08)
[2022-02-25] MEDS ORDERED: Lactated Ringer's 500 ML IV SCH (10:45)
[2022-02-25] MEDS: Lactated Ringer's 1,000 ML IV SCH (11:12)
[2022-02-25] MEDS ORDERED: Electrolyte Replacement Protocol 1 EACH FS PRN (13:00)
[2022-02-25] MEDS ORDERED: Magnesium 2 GM/50 ML(in water) 2 GM in Premix Bag 1 BAG IVPB SCH (13:15)
[2022-02-25] MEDS ORDERED: K-Phos Neutral 250 MG TAB PO SCH (17:00)
[2022-02-25] MEDS: Acetaminophen 325 MG TAB PO PRN (21:09)
[2022-02-25] MEDS: Latanoprost 0.005% Ophth Soln 2.5 ml Bottle EA EYE SCH (21:09)
[2022-02-25] MEDS: Cefepime 1 GM in Sodium Chloride 0.9% 100 ML IVPB SCH (21:10)
[2022-02-25] MEDS: Atorvastatin Calcium 40 MG TAB PO SCH (21:10)
[2022-02-25] MEDS ORDERED: VANCOMYCIN 1.25 GM/250 ML BAG 1.25 GM in Premix Bag 1 BAG IVPB SCH (22:00)
[2022-02-26] MEDS: Lactated Ringer's 1,000 ML IV SCH (00:23)
[2022-02-26 05:39] LABS: #Eosinphils 0.1 thou/uL (0.0-0.7); #Lymphocytes 1.5 thou/uL (1.20-3.40); #Monocytes 2.7 thou/uL (0.11-0.59); #Neutrophils 14.2 thou/uL (1.40-6.50); %Basophils 0.1 % (0.0-1.0); %Eosinophils 0.6 % (0.0-10.0); %Lymphocytes 8.3 % (21.0-51.0); %Monocytes 14.6 % (0.0-10.0); %Neutrophils 76.3 % (42.0-75.0); Hemoglobin 11.6 g/dL (14.0-18.0); Mean Corpuscular HGB CONC 32.2 g/dL (32.0-36.0); Mean Corpuscular Hemoglobin 31.2 pg (27.0-31.0); Mean Corpuscular Volume 96.8 fl (78.0-98.0); Mean Platelet Volume 8.1 fL (7.4-10.4); Platelet Count 223 10x3/uL (130-400); RBC Distribution Width 12.9 % (11.5-14.5); Red Blood Cell (RBC) Count 3.71 mill/uL (4.70-6.10); White Blood Cell (WBC) Count 18.6 10x3/uL (4.8-10.8)
[2022-02-26 05:56] LABS: Albumin 2.9 g/dL (3.4-4.8); Anion Gap 12 mmol/L (10-20); BUN (Urea Nitrogen) 23 mg/dL (8.4-25.7); CRP (Inflammatory) 31.81 mg/dL (= or < 0.5); Calc. Creatinine Clearance 72 mL/min (70-130); Calcium 8.6 mg/dL (7.8-10.44); Carbon Dioxide 18 mmol/L (23-31); Chloride 112 mmol/L (98-107); Estimated GFR 54; Glucose 101 mg/dL (80-115); Magnesium 2.2 mg/dL (1.6-2.6); Phosphorus 2.6 mg/dL (2.3-4.7); Sodium 138 mmol/L (136-145)
[2022-02-26] MEDS: Cefepime 1 GM in Sodium Chloride 0.9% 100 ML IVPB SCH (08:25)
[2022-02-26] MEDS: Clopidogrel Bisulfate 75 MG TAB PO SCH (08:25)
[2022-02-26] MEDS: Heparin 5,000 UNITS/ML VIAL SC SCH ×2 (08:25→20:31)
[2022-02-26] MEDS: Aspirin 81 mg Enteric Coated Tablet PO SCH (08:25)
[2022-02-26] MEDS: Acetaminophen 325 MG TAB PO PRN (18:24)
[2022-02-26] MEDS: Atorvastatin Calcium 40 MG TAB PO SCH (20:30)
[2022-02-26] MEDS: Latanoprost 0.005% Ophth Soln 2.5 ml Bottle EA EYE SCH (20:30)
[2022-02-26] MEDS: cefTRIAXone\\ROCEPHIN 1 GM in Sodium Chloride 0.9% 100 ML IVPB SCH (21:18)
[2022-02-27 04:54] LABS: Anion Gap 12 mmol/L (10-20); BUN (Urea Nitrogen) 22 mg/dL (8.4-25.7); Calc. Creatinine Clearance 73 mL/min (70-130); Calcium 8.8 mg/dL (7.8-10.44); Carbon Dioxide 19 mmol/L (23-31); Chloride 110 mmol/L (98-107); Estimated GFR 54; Glucose 98 mg/dL (80-115); Potassium 4.1 mmol/L (3.5-5.1); Sodium 137 mmol/L (136-145)
[2022-02-27] MEDS: Acetaminophen 325 MG TAB PO PRN (05:02)
[2022-02-27 05:23] LABS: Band 2 % (5-11); Hemoglobin 11.8 g/dL (14.0-18.0); Lymphocytes 14 % (21-51); MDiff Complete? YES; Mean Corpuscular HGB CONC 32.6 g/dL (32.0-36.0); Mean Corpuscular Hemoglobin 31.3 pg (27.0-31.0); Mean Corpuscular Volume 96.1 fl (78.0-98.0); Monocytes 14 % (0-10); Neutrophil 69 % (42-75); Platelet Count 229 10x3/uL (130-400); RBC Distribution Width 13.1 % (11.5-14.5); Red Blood Cell (RBC) Count 3.77 mill/uL (4.70-6.10); White Blood Cell (WBC) Count 11.3 10x3/uL (4.8-10.8)
[2022-02-27] MEDS: Clopidogrel Bisulfate 75 MG TAB PO SCH (08:57)
[2022-02-27] MEDS: Heparin 5,000 UNITS/ML VIAL SC SCH ×2 (08:58→20:28)
[2022-02-27] MEDS: Aspirin 81 mg Enteric Coated Tablet PO SCH (08:58)
[2022-02-27] MEDS ORDERED: Sodium Chloride 0.9% 500 ML IV SCH (20:15)
[2022-02-27] MEDS ORDERED: Acetaminophen 500 MG TAB PO SCH (20:15)
[2022-02-27] MEDS: Atorvastatin Calcium 40 MG TAB PO SCH (20:26)
[2022-02-27 20:57] LABS: Mean Corpuscular HGB CONC 32.3 g/dL (32.0-36.0); Mean Corpuscular Hemoglobin 30.8 pg (27.0-31.0); Mean Corpuscular Volume 95.5 fl (78.0-98.0); Mean Platelet Volume 7.5 fL (7.4-10.4); Platelet Count 237 10x3/uL (130-400); RBC Distribution Width 13.2 % (11.5-14.5); Red Blood Cell (RBC) Count 3.56 mill/uL (4.70-6.10); White Blood Cell (WBC) Count 8.2 10x3/uL (4.8-10.8)
[2022-02-27 21:00] LABS: ALT (SGPT) 21 U/L (8-55); AST (SGOT) 39 U/L (5-34); Alkaline Phosphatase 106 U/L (40-110); Anion Gap 15 mmol/L (10-20); BUN (Urea Nitrogen) 20 mg/dL (8.4-25.7); Bilirubin, Total 0.3 mg/dL (0.2-1.2); Calc. Creatinine Clearance 80 mL/min (70-130); Calcium 8.8 mg/dL (7.8-10.44); Carbon Dioxide 15 mmol/L (23-31); Chloride 109 mmol/L (98-107); Estimated GFR 59; Globulin 4.1 g/dL (2.4-3.5); Glucose 118 mg/dL (80-115); Potassium 4.9 mmol/L (3.5-5.1); Protein, Total 7.1 g/dL (5.8-8.1); Sodium 134 mmol/L (136-145)
[2022-02-27 21:19] LABS: Eosinophils 3 % (0-10); Lymphocytes 8 % (21-51); MDiff Complete? YES; Monocytes 20 % (0-10); Neutrophil 69 % (42-75); Platelet Morphology Comment Appears Adequate; RBC Morphology Normal
[2022-02-27] MEDS: cefTRIAXone\\ROCEPHIN 1 GM in Sodium Chloride 0.9% 100 ML IVPB SCH (21:45)
[2022-02-27] MEDS: Latanoprost 0.005% Ophth Soln 2.5 ml Bottle EA EYE SCH (21:51)
[2022-02-27 23:26] LABS: Lactic Acid 1.4 mmol/L (0.5-2.2)
[2022-02-28] MEDS: Heparin 5,000 UNITS/ML VIAL SC SCH ×2 (08:17→21:50)
[2022-02-28] MEDS: Aspirin 81 mg Enteric Coated Tablet PO SCH (08:17)
[2022-02-28] MEDS: Clopidogrel Bisulfate 75 MG TAB PO SCH (08:17)
[2022-02-28] MEDS: Latanoprost 0.005% Ophth Soln 2.5 ml Bottle EA EYE SCH (21:49)
[2022-02-28] MEDS: Atorvastatin Calcium 40 MG TAB PO SCH (21:49)
[2022-02-28] MEDS: cefTRIAXone\\ROCEPHIN 1 GM in Sodium Chloride 0.9% 100 ML IVPB SCH (21:51)
[2022-03-01 05:12] LABS: Mean Corpuscular HGB CONC 31.8 g/dL (32.0-36.0); Mean Corpuscular Volume 97.2 fl (78.0-98.0); Mean Platelet Volume 8.6 fL (7.4-10.4); Platelet Count 239 10x3/uL (130-400); RBC Distribution Width 13.4 % (11.5-14.5); Red Blood Cell (RBC) Count 3.54 mill/uL (4.70-6.10); White Blood Cell (WBC) Count 8.1 10x3/uL (4.8-10.8)
[2022-03-01 05:28] LABS: Anion Gap 11 mmol/L (10-20); BUN (Urea Nitrogen) 22 mg/dL (8.4-25.7); Calc. Creatinine Clearance 85 mL/min (70-130); Calcium 8.9 mg/dL (7.8-10.44); Carbon Dioxide 18 mmol/L (23-31); Chloride 109 mmol/L (98-107); Estimated GFR 65; Glucose 95 mg/dL (80-115); Potassium 4.3 mmol/L (3.5-5.1); Sodium 134 mmol/L (136-145)
[2022-03-01] MEDS: Aspirin 81 mg Enteric Coated Tablet PO SCH (09:14)
[2022-03-01] MEDS: Clopidogrel Bisulfate 75 MG TAB PO SCH (09:14)
[2022-03-01] MEDS: Heparin 5,000 UNITS/ML VIAL SC SCH ×2 (09:14→21:04)
[2022-03-01] MEDS: cefTRIAXone\\ROCEPHIN 1 GM in Sodium Chloride 0.9% 100 ML IVPB SCH (21:03)
[2022-03-01] MEDS: Latanoprost 0.005% Ophth Soln 2.5 ml Bottle EA EYE SCH (21:04)
[2022-03-01] MEDS: Atorvastatin Calcium 40 MG TAB PO SCH (21:05)
[2022-03-02 05:16] LABS: Anion Gap 12 mmol/L (10-20); BUN (Urea Nitrogen) 21 mg/dL (8.4-25.7); Calc. Creatinine Clearance 87 mL/min (70-130); Calcium 8.9 mg/dL (7.8-10.44); Carbon Dioxide 19 mmol/L (23-31); Chloride 108 mmol/L (98-107); Estimated GFR 68; Glucose 97 mg/dL (80-115); Potassium 4.3 mmol/L (3.5-5.1); Sodium 135 mmol/L (136-145)
[2022-03-02] MEDS: Aspirin 81 mg Enteric Coated Tablet PO SCH (08:56)
[2022-03-02] MEDS: Clopidogrel Bisulfate 75 MG TAB PO SCH (08:56)
[2022-03-02] MEDS: Heparin 5,000 UNITS/ML VIAL SC SCH (08:58)
[2022-03-02 12:20] VITALS: BP 116/71; TEMP 98
== END 2022-03-02 16:59 | disposition home or self-care (01) | DRG 871 ==
LOC: ERS 19:21 → CCU 22:48 → 2NO 02-26 20:46
PROVIDERS: ADMIT Internal Medicine; ATTEND Internal Medicine
PROC: 05HY33Z Insertion of Infusion Device into Upper Vein, Percutaneous Approach (ICD-10-PCS; principal; 2022-02-24)
PROC: 3E033XZ Introduction of Vasopressor into Peripheral Vein, Percutaneous Approach (ICD-10-PCS; 2022-02-24)
PROC: 3E03329 Introduction of Other Anti-infective into Peripheral Vein, Percutaneous Approach (ICD-10-PCS; 2022-02-24)
PROC: 8E0ZXY6 Isolation (ICD-10-PCS; 2022-02-24)
DX: A41.51 Sepsis due to Escherichia coli [E. coli] (principal); R65.21 Severe sepsis with septic shock; U07.1 COVID-19; N39.0 Urinary tract infection, site not specified; N17.9 Acute kidney failure, unspecified; I13.0 Hypertensive heart and chronic kidney disease with heart failure and stage 1 through stage 4 chronic kidney disease, or unspecified chronic kidney disease; J98.11 Atelectasis; I50.42 Chronic combined systolic (congestive) and diastolic (congestive) heart failure; J45.909 Unspecified asthma, uncomplicated; M10.9 Gout, unspecified; I25.10 Atherosclerotic heart disease of native coronary artery without angina pectoris; N18.30 Chronic kidney disease, stage 3 unspecified; E11.22 Type 2 diabetes mellitus with diabetic chronic kidney disease; E83.39 Other disorders of phosphorus metabolism; I44.7 Left bundle-branch block, unspecified; Z95.1 Presence of aortocoronary bypass graft; Z86.16 Personal history of COVID-19; Z88.5 Allergy status to narcotic agent; Z95.810 Presence of automatic (implantable) cardiac defibrillator; Z79.899 Other long term (current) drug therapy; Z79.82 Long term (current) use of aspirin
CPT/HCPCS: 36415; 36556; 71045; 80048; 80053; 80069; 81003; 81015; 83605; 83735; 83880; 84100; 84145; 84484; 85025; 85027; 85610; 85730; 86140; 87040; 87077; 87086; 87149; 87186; 93005; 93306; 96365; 96374; 96375; J0692; J0696; J1644; J2543; J3260; J3370; J3370-JW; J3475; J3490; J7030; J7050; J7120

== ENCOUNTER 2022-04-25 21:39 | Emergency (ER) | payer MEDICARE ==
[2022-04-25] MEDS ORDERED: Ondansetron ODT 4 MG TAB ONE ×2 (21:57→21:59)
[2022-04-25] MEDS ORDERED: Meclizine HCl 25 MG TAB ONE (21:57)
[2022-04-25 22:36] LABS: #Eosinphils 0.1 thou/uL (0.0-0.7); #Lymphocytes 1.5 thou/uL (1.20-3.40); #Monocytes 0.7 thou/uL (0.11-0.59); #Neutrophils 2.9 thou/uL (1.40-6.50); %Basophils 0.7 % (0.0-1.0); %Eosinophils 2.8 % (0.0-10.0); %Lymphocytes 28.1 % (21.0-51.0); %Monocytes 12.9 % (0.0-10.0); %Neutrophils 55.5 % (42.0-75.0); Hemoglobin 12.2 g/dL (14.0-18.0); Mean Corpuscular HGB CONC 32.5 g/dL (32.0-36.0); Mean Corpuscular Hemoglobin 32.2 pg (27.0-31.0); Mean Corpuscular Volume 99.1 fl (78.0-98.0); Mean Platelet Volume 8.1 fL (7.4-10.4); Platelet Count 201 10x3/uL (130-400); RBC Distribution Width 13.6 % (11.5-14.5); Red Blood Cell (RBC) Count 3.79 mill/uL (4.70-6.10); White Blood Cell (WBC) Count 5.3 10x3/uL (4.8-10.8)
[2022-04-25 22:53] LABS: Anion Gap 15 mmol/L (10-20); BUN (Urea Nitrogen) 27 mg/dL (8.4-25.7); Calc. Creatinine Clearance 0 mL/min (70-130); Calcium 9.1 mg/dL (7.8-10.44); Carbon Dioxide 18 mmol/L (23-31); Chloride 109 mmol/L (98-107); Estimated GFR 50; Glucose 113 mg/dL (80-115); Sodium 137 mmol/L (136-145)
== END 2022-04-25 23:32 | disposition home or self-care (01) ==
LOC: ERS 21:39
DX: H81.13 Benign paroxysmal vertigo, bilateral (principal); I11.0 Hypertensive heart disease with heart failure; I50.9 Heart failure, unspecified; E11.9 Type 2 diabetes mellitus without complications; E78.00 Pure hypercholesterolemia, unspecified; Z79.899 Other long term (current) drug therapy
CPT/HCPCS: 36415; 80048; 85025; 93005; Q0162

== ENCOUNTER 2022-08-11 17:53 | Observation (INO) | payer MEDICARE ==
[2022-08-11 18:42] LABS: #Eosinphils 0.1 thou/uL (0.0-0.7); #Monocytes 0.9 thou/uL (0.11-0.59); %Basophils 0.6 % (0.0-1.0); %Eosinophils 2.4 % (0.0-10.0); %Lymphocytes 25.5 % (21.0-51.0); %Monocytes 16.2 % (0.0-10.0); %Neutrophils 55.1 % (42.0-75.0); Hemoglobin 10.9 g/dL (14.0-18.0); Mean Corpuscular HGB CONC 33.1 g/dL (32.0-36.0); Mean Corpuscular Hemoglobin 30.8 pg (27.0-31.0); Mean Corpuscular Volume 92.9 fl (78.0-98.0); Mean Platelet Volume 10.3 fL (7.4-10.4); Platelet Count 188 10x3/uL (130-400); Red Blood Cell (RBC) Count 3.54 mill/uL (4.70-6.10); White Blood Cell (WBC) Count 5.4 10x3/uL (4.8-10.8)
[2022-08-11 19:40] LABS: Anion Gap 15 mmol/L (10-20); BUN (Urea Nitrogen) 56 mg/dL (8.4-25.7); CK (CPK) 301 U/L (30-200); Calc. Creatinine Clearance 0 mL/min (70-130); Calcium 9.5 mg/dL (7.8-10.44); Carbon Dioxide 18 mmol/L (23-31); Chloride 109 mmol/L (98-107); Estimated GFR 23; Glucose 145 mg/dL (80-115); Potassium 5.2 mmol/L (3.5-5.1); Sodium 137 mmol/L (136-145)
[2022-08-11] MEDS ORDERED: Ondansetron PF 4 MG/2 ML Vial IVP PRN (20:41)
[2022-08-11] MEDS ORDERED: Acetaminophen 650 MG Suppository PR PRN (20:41)
[2022-08-11] MEDS ORDERED: Acetaminophen 325 MG TAB PO PRN (20:41)
[2022-08-11] MEDS ORDERED: Ondansetron ODT 4 MG TAB PO PRN (20:41)
[2022-08-11] MEDS ORDERED: Dextrose 5% in Water 1,000 ML IV PRN (21:10)
[2022-08-11] MEDS ORDERED: HumaLOG 300 UNITS/3 ML VIAL SC PRN ×2 (21:10)
[2022-08-11] MEDS ORDERED: Dextrose 50% Abboject 50 ML SYRINGE SLOW IVP PRN (21:10)
[2022-08-11] MEDS ORDERED: Glucagon 1 MG/ML KIT IM PRN (21:10)
[2022-08-11 23:33] VITALS: BMI 29.4
[2022-08-12 00:15] LABS: Anion Gap 18 mmol/L (10-20); BUN (Urea Nitrogen) 53 mg/dL (8.4-25.7); Calc. Creatinine Clearance 36 mL/min (70-130); Calcium 9.4 mg/dL (7.8-10.44); Carbon Dioxide 18 mmol/L (23-31); Chloride 109 mmol/L (98-107); Estimated GFR 25; Glucose 117 mg/dL (80-115); Sodium 140 mmol/L (136-145)
[2022-08-12] MEDS: Sodium Chloride 0.9% 1,000 ML IV SCH ×2 (01:14→09:02)
[2022-08-12 06:28] LABS: #Eosinphils 0.2 thou/uL (0.0-0.7); #Monocytes 0.7 thou/uL (0.11-0.59); #Neutrophils 2.5 thou/uL (1.40-6.50); %Basophils 0.4 % (0.0-1.0); %Eosinophils 3.6 % (0.0-10.0); %Lymphocytes 26.7 % (21.0-51.0); %Monocytes 15.2 % (0.0-10.0); %Neutrophils 53.9 % (42.0-75.0); Hemoglobin 10.4 g/dL (14.0-18.0); Mean Corpuscular HGB CONC 31.8 g/dL (32.0-36.0); Mean Corpuscular Hemoglobin 30.4 pg (27.0-31.0); Mean Corpuscular Volume 95.6 fl (78.0-98.0); Mean Platelet Volume 10.9 fL (7.4-10.4); Platelet Count 132 10x3/uL (130-400); RBC Distribution Width 14.3 % (11.5-14.5); Red Blood Cell (RBC) Count 3.42 mill/uL (4.70-6.10); White Blood Cell (WBC) Count 4.7 10x3/uL (4.8-10.8)
[2022-08-12 06:56] LABS: Iron 67 ug/dL (65-175); Iron Binding Capacity, Total 191 mcg/dL (261-462)
[2022-08-12 06:57] LABS: Anion Gap 10 mmol/L (10-20); BUN (Urea Nitrogen) 49 mg/dL (8.4-25.7); Calc. Creatinine Clearance 43 mL/min (70-130); Calcium 8.8 mg/dL (7.8-10.44); Carbon Dioxide 17 mmol/L (23-31); Chloride 117 mmol/L (98-107); Estimated GFR 31; Glucose 108 mg/dL (80-115); Iron 68 ug/dL (65-175); Iron Binding Capacity, Total 196 mcg/dL (261-462); Potassium 4.9 mmol/L (3.5-5.1); Sodium 139 mmol/L (136-145)
[2022-08-12 07:04] LABS: CellaVision Operator ID lab.abc; Platelet Adequacy Comment Platelets Normal; RBC Morphology Within Normal Limits; Smudge Cells 13.7 %
[2022-08-12] MEDS ORDERED: Sodium Chloride 0.9% 1,000 ML IV SCH (11:45)
[2022-08-12] MEDS ORDERED: Lactated Ringer's 1,000 ML IV SCH (12:00)
[2022-08-12] MEDS: Sodium Bicarbonate 150 MEQ in Dextrose 5% in Water 1,000 ML IV SCH (18:03)
[2022-08-12] MEDS ORDERED: Atorvastatin Calcium 40 MG TAB PO SCH (21:00)
[2022-08-13] MEDS: Sodium Bicarbonate 150 MEQ in Dextrose 5% in Water 1,000 ML IV SCH ×2 (06:20→10:58)
[2022-08-13 07:45] LABS: #Eosinphils 0.2 thou/uL (0.0-0.7); #Monocytes 0.7 thou/uL (0.11-0.59); #Neutrophils 2.7 thou/uL (1.40-6.50); %Basophils 0.4 % (0.0-1.0); %Eosinophils 3.4 % (0.0-10.0); %Monocytes 14.6 % (0.0-10.0); %Neutrophils 54.4 % (42.0-75.0); Hemoglobin 10.5 g/dL (14.0-18.0); Mean Corpuscular HGB CONC 32.7 g/dL (32.0-36.0); Mean Corpuscular Volume 91.7 fl (78.0-98.0); Mean Platelet Volume 10.6 fL (7.4-10.4); Platelet Count 180 10x3/uL (130-400); RBC Distribution Width 13.9 % (11.5-14.5)
[2022-08-13 07:47] VITALS: TEMP 98.1
[2022-08-13 08:02] LABS: Anion Gap 13 mmol/L (10-20); BUN (Urea Nitrogen) 29 mg/dL (8.4-25.7); Calc. Creatinine Clearance 65 mL/min (70-130); Carbon Dioxide 21 mmol/L (23-31); Chloride 110 mmol/L (98-107); Estimated GFR 50; Glucose 109 mg/dL (80-115); Magnesium 1.8 mg/dL (1.6-2.6); Potassium 4.5 mmol/L (3.5-5.1); Sodium 139 mmol/L (136-145)
[2022-08-13] MEDS ORDERED: Aspirin 81 mg Enteric Coated Tablet PO SCH (09:00)
[2022-08-13] MEDS ORDERED: hydrALAZINE 25 MG TAB PO SCH (09:00)
[2022-08-13] MEDS ORDERED: Ferrous Sulfate 325 MG TAB PO SCH (09:00)
[2022-08-13] MEDS ORDERED: Clopidogrel Bisulfate 75 MG TAB PO SCH (09:00)
[2022-08-13 17:06] VITALS: BP 128/89
== END 2022-08-13 18:20 | disposition home or self-care (01) ==
LOC: ERS 17:53 → T4-B 20:23
PROVIDERS: ADMIT Student in an Organized Health Care Education/Training Program; ATTEND Internal Medicine
DX: N17.9 Acute kidney failure, unspecified (principal); I13.0 Hypertensive heart and chronic kidney disease with heart failure and stage 1 through stage 4 chronic kidney disease, or unspecified chronic kidney disease; I50.9 Heart failure, unspecified; E11.22 Type 2 diabetes mellitus with diabetic chronic kidney disease; N18.30 Chronic kidney disease, stage 3 unspecified; D64.9 Anemia, unspecified; E78.5 Hyperlipidemia, unspecified; I25.10 Atherosclerotic heart disease of native coronary artery without angina pectoris; E87.20 Acidosis, unspecified; J45.909 Unspecified asthma, uncomplicated; E87.5 Hyperkalemia; Z95.810 Presence of automatic (implantable) cardiac defibrillator; Z88.6 Allergy status to analgesic agent; Z79.82 Long term (current) use of aspirin; Z79.02 Long term (current) use of antithrombotics/antiplatelets; Z79.899 Other long term (current) drug therapy
CPT/HCPCS: 71045; 76770; 80048 ×4; 82550; 82728; 82962 ×2; 83540; 83550; 83735; 83880; 84484; 85025 ×3; 93005; 93306; 96360; 96361; 99285; G0378 ×4; 36415; 36416; J7050; J7070; J7120

== ENCOUNTER 2023-04-01 12:43 | Inpatient (IN) | payer MEDICARE ==
[2023-04-01 15:33] LABS: #Eosinphils 0.2 thou/uL (0.0-0.7); #Monocytes 0.7 thou/uL (0.11-0.59); #Neutrophils 3.1 thou/uL (1.40-6.50); %Basophils 0.2 % (0.0-1.0); %Lymphocytes 23.4 % (21.0-51.0); %Monocytes 13.9 % (0.0-10.0); %Neutrophils 59.3 % (42.0-75.0); Hematocrit 36.1 % (42.0-52.0); Hemoglobin 11.7 g/dL (14.0-18.0); Mean Corpuscular HGB CONC 32.4 g/dL (32.0-36.0); Mean Corpuscular Hemoglobin 30.5 pg (27.0-31.0); Mean Corpuscular Volume 94.3 fl (78.0-98.0); Mean Platelet Volume 10.1 fL (7.4-10.4); Platelet Count 208 10x3/uL (130-400); RBC Distribution Width 14.2 % (11.5-14.5); Red Blood Cell (RBC) Count 3.83 mill/uL (4.70-6.10); White Blood Cell (WBC) Count 5.3 10x3/uL (4.8-10.8)
[2023-04-01 15:52] LABS: ALT (SGPT) 12 U/L (8-55); AST (SGOT) 14 U/L (5-34); Albumin 3.7 g/dL (3.4-4.8); Alkaline Phosphatase 84 U/L (40-110); Anion Gap 11 mmol/L (10-20); BUN (Urea Nitrogen) 36 mg/dL (8.4-25.7); Bilirubin, Total 0.3 mg/dL (0.2-1.2); Calc. Creatinine Clearance 0 mL/min (70-130); Calcium 9.3 mg/dL (7.8-10.44); Carbon Dioxide 23 mmol/L (23-31); Chloride 104 mmol/L (98-107); Estimated GFR 41; Globulin 3.7 g/dL (2.4-3.5); Glucose 105 mg/dL (80-115); Potassium 4.4 mmol/L (3.5-5.1); Protein, Total 7.4 g/dL (5.8-8.1); Sodium 134 mmol/L (136-145)
[2023-04-01 15:54] LABS: Troponin I Less than 0.010 ng/mL (< 0.028)
[2023-04-01] MEDS ORDERED: Acetaminophen 325 MG TAB PO PRN (17:35)
[2023-04-01] MEDS ORDERED: Ondansetron PF 4 MG/2 ML Vial IVP PRN (17:35)
[2023-04-01] MEDS ORDERED: HumaLOG 300 UNITS/3 ML VIAL SC PRN ×2 (17:37)
[2023-04-01] MEDS ORDERED: Dextrose 5% in Water 1,000 ML IV PRN (17:37)
[2023-04-01] MEDS ORDERED: Dextrose 50% Abboject 50 ML SYRINGE SLOW IVP PRN (17:37)
[2023-04-01] MEDS ORDERED: Glucagon 1 MG/ML KIT IM PRN (17:37)
[2023-04-01 20:46] LABS: Troponin I Less than 0.010 ng/mL (< 0.028)
[2023-04-01] MEDS ORDERED: Carvedilol 25 MG TAB ONE (21:57)
[2023-04-01] MEDS ORDERED: Atorvastatin Calcium 40 MG TAB ONE (21:57)
[2023-04-01] MEDS: Carvedilol 25 MG TAB PO SCH (22:06)
[2023-04-01] MEDS: Atorvastatin Calcium 40 MG TAB PO SCH (22:06)
[2023-04-01] MEDS: Ranolazine ER 500 MG TAB PO SCH (22:45)
[2023-04-01 23:03] LABS: Troponin I Less than 0.010 ng/mL (< 0.028)
[2023-04-01] MEDS ORDERED: Nitroglycerin 0.4 MG TAB (25 Tab Bottle) ONE (23:17)
[2023-04-01] MEDS: Nitroglycerin 0.4 MG TAB (25 Tab Bottle) SL PRN (23:30)
[2023-04-01] MEDS ORDERED: Nitroglycerin 2% Ointment 1 INCH/1 GM Packet ONE (23:43)
[2023-04-01] MEDS: Nitroglycerin 2% Ointment 1 INCH/1 GM Packet TOP SCH (23:46)
[2023-04-02] MEDS ORDERED: Morphine 2 MG/ML VIAL ONE (00:13)
[2023-04-02] MEDS: Morphine 2 MG/ML VIAL SLOW IVP SCH (00:20)
[2023-04-02 01:13] LABS: Troponin I Less than 0.010 ng/mL (< 0.028)
[2023-04-02 04:37] LABS: #Eosinphils 0.2 thou/uL (0.0-0.7); #Monocytes 0.8 thou/uL (0.11-0.59); #Neutrophils 3.2 thou/uL (1.40-6.50); %Basophils 0.5 % (0.0-1.0); %Eosinophils 3.8 % (0.0-10.0); %Lymphocytes 24.7 % (21.0-51.0); %Monocytes 13.9 % (0.0-10.0); %Neutrophils 56.9 % (42.0-75.0); Hematocrit 35.8 % (42.0-52.0); Hemoglobin 11.6 g/dL (14.0-18.0); Mean Corpuscular HGB CONC 32.4 g/dL (32.0-36.0); Mean Corpuscular Hemoglobin 30.4 pg (27.0-31.0); Mean Platelet Volume 10.3 fL (7.4-10.4); Platelet Count 201 10x3/uL (130-400); RBC Distribution Width 14.2 % (11.5-14.5); Red Blood Cell (RBC) Count 3.81 mill/uL (4.70-6.10); White Blood Cell (WBC) Count 5.5 10x3/uL (4.8-10.8)
[2023-04-02 04:55] LABS: Anion Gap 11 mmol/L (10-20); BUN (Urea Nitrogen) 31 mg/dL (8.4-25.7); Calc. Creatinine Clearance 66 mL/min (70-130); Calcium 9.3 mg/dL (7.8-10.44); Carbon Dioxide 22 mmol/L (23-31); Cardiac Risk 3.3 (Less than 4.5); Chloride 104 mmol/L (98-107); Cholesterol 143 mg/dl (< 200 Desired); Estimated GFR 53; Glucose 97 mg/dL (80-115); HDL Cholesterol 44 mg/dL (>60 Neg Risk); LDL Cholesterol, Calculated 85 mg/dL; Potassium 4.2 mmol/L (3.5-5.1); Sodium 133 mmol/L (136-145); Triglycerides 68 mg/dL (Less than 150)
[2023-04-02 06:38] LABS: Hemoglobin A1c 6.1 % (4.0-6.0)
[2023-04-02] MEDS ORDERED: Carvedilol 25 MG TAB ONE (08:35)
[2023-04-02] MEDS ORDERED: Sacubitril 49 MG/Valsartan 51 MG TABLET ONE (08:35)
[2023-04-02] MEDS ORDERED: Furosemide 40 MG TAB ONE (08:35)
[2023-04-02] MEDS ORDERED: hydrALAZINE 25 MG TAB ONE (08:35)
[2023-04-02] MEDS ORDERED: Clopidogrel Bisulfate 75 MG TAB ONE (08:35)
[2023-04-02] MEDS ORDERED: Aspirin Chewable 81 MG TAB ONE (08:36)
[2023-04-02] MEDS: Aspirin 81 mg Enteric Coated Tablet PO SCH (08:52)
[2023-04-02] MEDS: Sacubitril 49 MG/Valsartan 51 MG TABLET PO SCH (08:53)
[2023-04-02] MEDS: hydrALAZINE 25 MG TAB PO SCH (08:53)
[2023-04-02] MEDS: Clopidogrel Bisulfate 75 MG TAB PO SCH (08:53)
[2023-04-02] MEDS: Furosemide 40 MG TAB PO SCH (08:53)
[2023-04-02] MEDS: Isosorbide Mononitrate 60 MG ER.TAB PO SCH (09:43)
[2023-04-02] MEDS: Ferrous Sulfate 325 MG TAB PO SCH (09:43)
[2023-04-02 18:06] VITALS: BMI 28.6
[2023-04-02] MEDS: Sodium Chloride 0.9% 1,000 ML IV SCH (22:25)
[2023-04-03 06:25] LABS: #Eosinphils 0.2 thou/uL (0.0-0.7); #Monocytes 0.9 thou/uL (0.11-0.59); #Neutrophils 3.6 thou/uL (1.40-6.50); %Basophils 0.2 % (0.0-1.0); %Eosinophils 3.4 % (0.0-10.0); %Lymphocytes 19.9 % (21.0-51.0); %Monocytes 15.1 % (0.0-10.0); %Neutrophils 61.2 % (42.0-75.0); Hematocrit 34.4 % (42.0-52.0); Hemoglobin 11.2 g/dL (14.0-18.0); Mean Corpuscular HGB CONC 32.6 g/dL (32.0-36.0); Mean Corpuscular Hemoglobin 30.2 pg (27.0-31.0); Mean Corpuscular Volume 92.7 fl (78.0-98.0); Mean Platelet Volume 9.6 fL (7.4-10.4); Platelet Count 210 10x3/uL (130-400); RBC Distribution Width 14.2 % (11.5-14.5); Red Blood Cell (RBC) Count 3.71 mill/uL (4.70-6.10); White Blood Cell (WBC) Count 5.9 10x3/uL (4.8-10.8)
[2023-04-03 06:50] LABS: Anion Gap 10 mmol/L (10-20); BUN (Urea Nitrogen) 35 mg/dL (8.4-25.7); Calc. Creatinine Clearance 54 mL/min (70-130); Calcium 8.9 mg/dL (7.8-10.44); Carbon Dioxide 22 mmol/L (23-31); Chloride 107 mmol/L (98-107); Estimated GFR 41; Glucose 114 mg/dL (80-115); Magnesium 1.8 mg/dL (1.6-2.6); Potassium 4.1 mmol/L (3.5-5.1); Sodium 135 mmol/L (136-145)
[2023-04-04 07:31] LABS: Anion Gap 11 mmol/L (10-20); BUN (Urea Nitrogen) 36 mg/dL (8.4-25.7); Calc. Creatinine Clearance 52 mL/min (70-130); Calcium 8.9 mg/dL (7.8-10.44); Carbon Dioxide 22 mmol/L (23-31); Chloride 108 mmol/L (98-107); Estimated GFR 40; Glucose 109 mg/dL (80-115); Potassium 4.6 mmol/L (3.5-5.1); Sodium 136 mmol/L (136-145)
[2023-04-04] MEDS: Sodium Chloride 0.9% 1,000 ML IV SCH (13:43)
[2023-04-05 06:26] LABS: Anion Gap 11 mmol/L (10-20); BUN (Urea Nitrogen) 36 mg/dL (8.4-25.7); Calc. Creatinine Clearance 53 mL/min (70-130); Calcium 8.8 mg/dL (7.8-10.44); Carbon Dioxide 21 mmol/L (23-31); Chloride 109 mmol/L (98-107); Estimated GFR 41; Glucose 114 mg/dL (80-115); Potassium 4.3 mmol/L (3.5-5.1); Sodium 137 mmol/L (136-145)
[2023-04-05] MEDS ORDERED: Regadenoson 0.4 MG/5 ML SYRINGE ONE (11:54)
[2023-04-05] MEDS: Sodium Chloride 0.9% 1,000 ML IV SCH (14:40)
[2023-04-05 16:00] VITALS: TEMP 97.6
[2023-04-05 16:02] VITALS: BP 129/67
== END 2023-04-05 19:07 | disposition home or self-care (01) | DRG 313 ==
LOC: ERS 12:43 → ERHOLD 17:35 → OBSVTOIN 04-02 16:06 → 2SW 04-02 17:53
PROVIDERS: ADMIT Internal Medicine; ATTEND Family Medicine
DX: R07.9 Chest pain, unspecified (principal); I50.32 Chronic diastolic (congestive) heart failure; I13.0 Hypertensive heart and chronic kidney disease with heart failure and stage 1 through stage 4 chronic kidney disease, or unspecified chronic kidney disease; M10.9 Gout, unspecified; E78.00 Pure hypercholesterolemia, unspecified; I25.10 Atherosclerotic heart disease of native coronary artery without angina pectoris; N18.32 Chronic kidney disease, stage 3b; E11.22 Type 2 diabetes mellitus with diabetic chronic kidney disease; I25.5 Ischemic cardiomyopathy; D64.9 Anemia, unspecified; Z95.1 Presence of aortocoronary bypass graft; Z98.890 Other specified postprocedural states; Z88.5 Allergy status to narcotic agent; Z88.8 Allergy status to other drugs, medicaments and biological substances; Z79.82 Long term (current) use of aspirin; Z79.899 Other long term (current) drug therapy; Z95.810 Presence of automatic (implantable) cardiac defibrillator
CPT/HCPCS: 36415; 36416; 71045; 78452; 80048; 80053; 80061; 83036; 83735; 83880; 84484; 85025; 93005; 93017; 93306; A9502; J2272; J2785; J7050

== ENCOUNTER 2023-07-21 13:55 | Inpatient (IN) | payer MEDICARE ==
[2023-07-21 14:51] LABS: #Basophils Less than 0.03 10x3/uL (0.0-0.2); %Basophils 0.4 % (0.0-1.0); %Eosinophils 1.8 % (0.0-10.0); %Lymphocytes 25.9 % (21.0-51.0); %Monocytes 14.1 % (0.0-10.0); %Neutrophils 57.6 % (42.0-75.0); Hematocrit 34.7 % (42.0-52.0); Hemoglobin 11.3 g/dL (14.0-18.0); Mean Corpuscular HGB CONC 32.6 g/dL (32.0-36.0); Mean Corpuscular Volume 95.3 fL (78.0-98.0); Mean Platelet Volume 10.4 fL (7.4-10.4); Platelet Count 195 10x3/uL (130-400); RBC Distribution Width 14.6 % (11.5-14.5); Red Blood Cell (RBC) Count 3.64 mill/uL (4.70-6.10)
[2023-07-21 15:05] LABS: ALT (SGPT) 12 U/L (8-55); AST (SGOT) 14 U/L (5-34); Albumin 3.3 g/dL (3.4-4.8); Alkaline Phosphatase 92 U/L (40-110); Anion Gap 14 mmol/L (10-20); BUN (Urea Nitrogen) 38 mg/dL (8.4-25.7); Bilirubin, Total 0.3 mg/dL (0.2-1.2); Calc. Creatinine Clearance 0 mL/min (70-130); Calcium 8.8 mg/dL (7.8-10.44); Carbon Dioxide 19 mmol/L (23-31); Chloride 108 mmol/L (98-107); Estimated GFR 33; Globulin 3.4 g/dL (2.4-3.5); Glucose 152 mg/dL (80-115); Protein, Total 6.7 g/dL (5.8-8.1); Sodium 136 mmol/L (136-145)
[2023-07-21 15:09] LABS: Troponin I Less than 0.010 ng/mL (< 0.028)
[2023-07-21] MEDS ORDERED: Nitroglycerin 0.4 MG TAB (25 Tab Bottle) SL PRN (17:40)
[2023-07-21 20:39] VITALS: BMI 28.2
[2023-07-21] MEDS: Ranolazine ER 500 MG TAB PO SCH (21:18)
[2023-07-21] MEDS: Atorvastatin Calcium 40 MG TAB PO SCH (21:18)
[2023-07-21] MEDS: Heparin 5,000 UNITS/ML VIAL SC SCH (21:18)
[2023-07-21] MEDS: Carvedilol 25 MG TAB PO SCH (21:18)
[2023-07-21] MEDS: hydrALAZINE 25 MG TAB PO SCH (21:18)
[2023-07-21] MEDS: Sodium Chloride 0.9% 1,000 ML IV SCH (21:19)
[2023-07-21 23:10] LABS: Troponin I Less than 0.010 ng/mL (< 0.028)
[2023-07-22 00:29] LABS: Troponin I Less than 0.010 ng/mL (< 0.028)
[2023-07-22 04:27] LABS: #Basophils Less than 0.03 10x3/uL (0.0-0.2); %Basophils 0.4 % (0.0-1.0); %Eosinophils 2.8 % (0.0-10.0); %Lymphocytes 30.9 % (21.0-51.0); %Monocytes 14.5 % (0.0-10.0); %Neutrophils 51.2 % (42.0-75.0); Hematocrit 36.3 % (42.0-52.0); Hemoglobin 11.8 g/dL (14.0-18.0); Mean Corpuscular HGB CONC 32.5 g/dL (32.0-36.0); Mean Corpuscular Hemoglobin 30.7 pg (27.0-31.0); Mean Corpuscular Volume 94.5 fL (78.0-98.0); Mean Platelet Volume 10.2 fL (7.4-10.4); Platelet Count 208 10x3/uL (130-400); RBC Distribution Width 14.6 % (11.5-14.5); Red Blood Cell (RBC) Count 3.84 mill/uL (4.70-6.10)
[2023-07-22 05:07] LABS: Anion Gap 14 mmol/L (10-20); BUN (Urea Nitrogen) 31 mg/dL (8.4-25.7); Calc. Creatinine Clearance 57 mL/min (70-130); Calcium 9.1 mg/dL (7.8-10.44); Carbon Dioxide 19 mmol/L (23-31); Chloride 109 mmol/L (98-107); Estimated GFR 46; Glucose 95 mg/dL (80-115); Magnesium 1.9 mg/dL (1.6-2.6); Potassium 4.9 mmol/L (3.5-5.1); Sodium 137 mmol/L (136-145)
[2023-07-22] MEDS: Isosorbide Mononitrate 60 MG ER.TAB PO SCH (09:16)
[2023-07-22] MEDS: Aspirin 81 mg Enteric Coated Tablet PO SCH (09:16)
[2023-07-22] MEDS: Ferrous Sulfate 325 MG TAB PO SCH (09:18)
[2023-07-22] MEDS: Clopidogrel Bisulfate 75 MG TAB PO SCH (09:18)
[2023-07-23] MEDS ORDERED: Glucagon 1 MG/ML KIT IM PRN (09:54)
[2023-07-23] MEDS ORDERED: Dextrose 50% Abboject 50 ML SYRINGE SLOW IVP PRN (09:54)
[2023-07-23] MEDS ORDERED: Dextrose 5% in Water 1,000 ML IV PRN (09:54)
[2023-07-23] MEDS ORDERED: HumaLOG 300 UNITS/3 ML VIAL SC PRN (09:54)
[2023-07-23 16:11] VITALS: BP 126/76; TEMP 98.3
== END 2023-07-23 19:37 | disposition home or self-care (01) | DRG 313 ==
LOC: ERS 13:55 → 2SW 16:57 → OBSVTOIN 07-23 11:13
PROVIDERS: ADMIT Internal Medicine; ATTEND Internal Medicine
DX: R07.89 Other chest pain (principal); I13.0 Hypertensive heart and chronic kidney disease with heart failure and stage 1 through stage 4 chronic kidney disease, or unspecified chronic kidney disease; I50.22 Chronic systolic (congestive) heart failure; N17.9 Acute kidney failure, unspecified; R20.0 Anesthesia of skin; I25.10 Atherosclerotic heart disease of native coronary artery without angina pectoris; E78.00 Pure hypercholesterolemia, unspecified; I25.5 Ischemic cardiomyopathy; E11.22 Type 2 diabetes mellitus with diabetic chronic kidney disease; N18.32 Chronic kidney disease, stage 3b; Z95.810 Presence of automatic (implantable) cardiac defibrillator; Z88.5 Allergy status to narcotic agent; Z88.8 Allergy status to other drugs, medicaments and biological substances; Z79.899 Other long term (current) drug therapy; Z79.82 Long term (current) use of aspirin; Z79.02 Long term (current) use of antithrombotics/antiplatelets; Z95.1 Presence of aortocoronary bypass graft
CPT/HCPCS: 36415; 36416; 71045; 80048; 80053; 83735; 83880; 84484; 85025; 93005; 94760; 96360; 96372; G0378; J1644; J7050